=== PATIENT | male | born 1965 | race Caucasian/White ===

== ENCOUNTER 2020-04-14 10:00 | Outpatient (REF) | payer OTHER, SELFPAY ==
[2020-04-14 11:22] LABS: MANUAL DIFF FLAG NO
[2020-04-14 11:43] LABS: Basophils Absolute Auto 0.1 X10*3/uL (0.0-0.2); Basophils Percent Auto 0.7 % (0-2); Eosinophils Absolute Auto 0.1 X10*3/uL (0.0-0.4); Eosinophils Percent Auto 1.7 % (0-4); Hematocrit 45.5 % (42-52); Hemoglobin 15.3 g/dl (14.0-18.0); Imm Gran Abs Auto 0.03 X10*3/uL (0.00-0.03); Imm Gran Pct Auto 0.4 % (0.0-0.4); Lymphocytes Absolute Auto 2.3 X10*3/uL (1.2-4.9); Mean Corpuscular HGB Conc 33.6 g/dl (31.0-36.0); Mean Corpuscular Volume 89.2 fL (80-98); Mean Platelet Volume 9.7 fL (9.4-12.4); Monocytes Absolute Auto 0.8 X10*3/uL (0.1-1.2); Monocytes Percent Auto 10.5 % (2-11); Neutrophils Absolute Auto 4.2 X10*3/uL (2.0-8.3); Neutrophils Percent Auto 55.7 % (45-73); Platelet Count 345 X10*3/uL (160-400); Red Cell Distribution Width 12.3 % (11.0-16.0); White Blood Count 7.6 X10*3/uL (4.8-10.8)
[2020-04-14 12:14] LABS: Vitamin D 25-OH Total 34.7 ng/mL (>30)
[2020-04-14 12:15] LABS: Alanine Aminotransferase 115 U/L (0-40); Albumin Level 4.4 g/dL (3.5-5.0); Alkaline Phosphatase 71 U/L (39-117); Anion Gap 13 (12-20); Aspartate Amino Transferase 126 U/L (5-37); Bilirubin Total 0.7 mg/dL (0.0-1.0); Blood Urea Nitrogen 16 mg/dL (9-16); Calcium 8.8 mg/dL (8.4-10.2); Carbon Dioxide 28 mmol/L (22-29); Chloride 105 mmol/L (96-108); Cholesterol 208 mg/dL; Estimated Glomerular Filt Rate > 60; Glucose Fasting 104 mg/dL (60-99); HDL Cholesterol 74 mg/dL; LDL Cholesterol Calculated 120 mg/dl; Potassium 4.7 mmol/l (3.3-5.1); Sodium 141 mmol/L (135-145); Total Protein 6.6 g/dL (6.5-8.0); Triglycerides 70 mg/dL
[2020-04-14 12:32] LABS: Folate > 20.0 ng/mL (> or = 4.0); Vitamin B12 633 pg/mL (200-900)
== END 2020-04-14 10:01 | disposition home or self-care (01) ==
LOC: HO.HMGCLDS 10:00
PROVIDERS: PCP Internal Medicine; Visit Provider Internal Medicine
DX: E78.5 Hyperlipidemia, unspecified (principal); F32.9 Major depressive disorder, single episode, unspecified; R68.82 Decreased libido; Z00.01 Encounter for general adult medical examination with abnormal findings; R41.3 Other amnesia
CPT/HCPCS: 36415; 80053; 80061; 82306; 82607; 82746; 85025

== ENCOUNTER 2021-04-15 10:01 | Outpatient (REF) | payer OTHER, SELFPAY ==
[2021-04-15 11:58] LABS: Alanine Aminotransferase 30 U/L (0-40); Albumin Level 4.4 g/dL (3.5-5.0); Alkaline Phosphatase 71 U/L (39-117); Anion Gap 11 (12-20); Aspartate Amino Transferase 22 U/L (5-37); Bilirubin Total 1.3 mg/dL (0.0-1.0); Blood Urea Nitrogen 16 mg/dL (9-16); Calcium 8.9 mg/dL (8.4-10.2); Carbon Dioxide 27 mmol/L (22-29); Chloride 108 mmol/L (96-108); Cholesterol 194 mg/dL; Estimated Glomerular Filt Rate > 60; Glucose Fasting 76 mg/dL (60-99); HDL Cholesterol 66 mg/dL; LDL Cholesterol Calculated 119 mg/dl; Potassium 4.2 mmol/L (3.3-5.1); Sodium 142 mmol/L (135-145); Total Protein 6.5 g/dL (6.5-8.0); Triglycerides 45 mg/dL
[2021-04-15 12:10] LABS: PSA,Total (Free>4and<10) 4.31 ng/mL (0.00-4.00); Vitamin D 25-OH Total 32.7 ng/mL (>30)
[2021-04-16 11:22] LABS: Free Prostate Spec Ag 0.6 ng/mL; Percent Free Prostate Spec Ag 16 % (calc) (>25); Prostate Specific Ag Total 3.7 ng/mL (< OR = 4.0)
== END 2021-04-15 10:02 | disposition home or self-care (01) ==
LOC: HO.HMGCLDS 10:01
PROVIDERS: PCP Internal Medicine; Visit Provider Internal Medicine
DX: Z12.5 Encounter for screening for malignant neoplasm of prostate (principal); N40.0 Benign prostatic hyperplasia without lower urinary tract symptoms
CPT/HCPCS: 36415; 80053; 80061; 82306; 84153; 84154

== ENCOUNTER 2021-07-21 12:57 | Outpatient (REF) | payer OTHER, SELFPAY ==
[2021-07-21 14:39] LABS: Alanine Aminotransferase 21 U/L (0-40); Albumin Level 4.4 g/dL (3.5-5.0); Alkaline Phosphatase 75 U/L (39-117); Aspartate Amino Transferase 18 U/L (5-37); Bilirubin Direct 0.3 mg/dL (0.0-0.5); Total Protein 6.6 g/dL (6.5-8.0)
== END 2021-07-21 12:58 | disposition home or self-care (01) ==
LOC: HO.HMGCLDS 12:57
PROVIDERS: PCP Internal Medicine; Visit Provider Internal Medicine
DX: R17 Unspecified jaundice (principal)
CPT/HCPCS: 36415; 80076

== ENCOUNTER 2023-05-19 12:38 | Outpatient (AMB) | payer OTHER, SELFPAY ==
--- NOTE | 2023-05-19 13:13 | A.OFFPC_ITS ---
Vital Signs 05/19/23 13:14 Height 5 ft 11 in Weight 177 lb 8 oz BMI 24.8 BP 132/84 Blood Pressure Location Lt brachial Position Sitting Pulse 88 Pulse Source Pulse Oximeter Pulse Oximetry (%) 96 Oxygen Delivery Method Room Air Intake Visit Reasons: PE Intake Note: Pt is here for his Annual PE Allergies No Known Allergies Allergy (Unknown, Verified 05/19/23 13:43) Medication List - Last Reconciled 05/19/23 by Rocio Singh MD ascorbic acid (vitamin C) 1 g PO DAILY bupropion HCl 150 mg PO QAM milk thistle 150 mg PO DAILY multivitamin 1 tab PO DAILY omega 0-aph-xvr-fish oil 1,000 mg (120 mg-180 mg) (Fish Oil) 1 cap PO DAILY red yeast rice 600 mg PO DAILY sildenafil 100 mg PO DAILY PRN tadalafil (Cialis) 5 mg PO DAILY Tobacco use date assessed: 05/19/23 Dental Screening Dental Screen Date: 05/19/23 Did you have a dental visit in the last 12 months?: Yes Did you have a dental problem in the last 6 months where you did not have access to dental care?: No Was dental information given to patient?: Patient has dentist HPI PE HPI Details 57 year old male here today for his phys ical exam. He has history of prostate cancer status post radical prostatectomy, now with male erectile dysfunction, has stress incontinence, currently followed at [facility]. He has insomnia and depression currently stable on bupropion 150 mg taken once a day in a.m.. He is complaining today of pain in his left shoulder joint, with difficulty doing overhead move clancy with left hand due to pain. This has been present now for the last several months and has not improved with physical therapy or conservative measures. Patient requesting referral back to see [facility] He is up-to-date with screening colonoscopy done by Dr. Lin in 2015, due again in 2025. He has had COVID vaccinations in the past but does not want to get booster, has to get a flu shot today, up-to-date with his Tdap but has not yet had his shingles vaccination. 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 Sister No problems noted. Son No problems noted. Son No problems noted. Daughter No problems noted. Social History Housing: House Alcohol intake: former Patient Tobacco Use Status: Never used Tobacco e-Cigarette/Vaping Use: Never Used service: No Current occupational status: employed Cognitive needs: No Hearing needs: No Vision needs: Yes Questionnaire PHQ-9 Over the last 2 weeks, how often have you been bothered by any of the following problems? 1. Little interest or pleasure in doing things: several days 2. Feeling down, depressed, or hopeless: several days 3. Trouble falling or staying asleep, or sleeping too much: more than half the days 4. Feeling tired or having little energy: several days 5. Poor appetite or overeating: several days 6. Feeling bad about yourself - or that you are a failure or have let yourself or your family down: more than half the days 7. Trouble concentrating on things, such as reading the newspaper or watching television: several days 8. Moving or speaking so slowly that other people could have noticed. Or the opposite - being so fidgety or restless that you have been moving around a lot more than usual: several days 9. Thoughts that you would be better off or of hurting yourself in some way: not at all Total score: 10 Depression Screening Interpretation: Positive Depression Screening Follow-up: Existing condition and In treatment Depression Screening Done: Yes 47972 - PHQ-9 Billing: Yes Source: Developed by Drs. Major Gaspar, Velvet Clements, Man Belle and colleagues, with an educational juve from [employer]. Thrive Questionnaire Date Thrive assessed: 05/19/23 I am a: Patient What is your living situation today?: I have a steady place to live Within the past 12 months, did the food you bought not last and you didn't have the money to get more?: Never true Within the past 12 months, did you worry whether your food would run out before you got money to buy more?: Never true Do you have trouble paying for medicines?: No Do you have trouble getting transportation to medical appointments?: No Do you have trouble paying your heating and electricity bill?: No Do you have trouble taking care of your child, family member or friend?: No Do you have trouble with day-to-day activities such as bathing, preparing meals, shopping, managing finances, etc.?: No Are you currently unemployed and looking for a job?: No Are you interested in more education?: No AUDIT C Alcohol Use Questionnaire (AUDIT-C) 1. How often do you have a drink containing alcohol?: Never Total Score: 0 REGINA-7 AMB Questionnaire REGINA-7 Date REGINA - 7 assessed: 05/19/23 Feeling nervous, anxious, or on edge: 1 = Several days Not being able to stop or control worryin = Several days Worrying too much about different things: 1 = Several days Trouble relaxin = Several days Being so restless that it is hard to sit still: 0 = Not at all Becoming easily annoyed or irritable: 1 = Several days Feeling afraid as if something awful might happen: 0 = Not at all Total REGINA-7 score (0-4 normal; 5-9 mild; 10-14 moderate; 15-21 severe): 5 Source: Developed by Drs. Major Gaspar, Velvet Clements, Man Belle and colleagues, with an educational juve from [employer]. REGINA-7 Assessment Billing REGINA-7 Assessment Tool: REGINA-7 Assessment 03456 Review of Systems Const Denies headache(s), Denies malaise and Denies weakness Eyes Reports no additional complaints ENT Reports Normal hearing present, Denies dysphagia, Denies vertigo, Denies dizziness, Denies dry mouth, Denies otalgia, Denies headache(s), Denies hoarseness, Denies epistaxis, Denies nasal congestion, Denies odynophagia, Denies post nasal drip and Denies sore throat Card Denies chest pain, Denies chest pain with activity, Denies irregular heart rhythm, Denies lightheadedness, Denies palpitations and Denies dyspnea Resp Denies cough, Denies pain on inspiration and Denies dyspnea GI Denies abdominal pain, Denies melena, Denies hematochezia, Denies change in bowel habits, Denies dysphagia, Denies heartburn, Denies nausea and Denies odynophagia Denies hematuria, Denies dysuria, Reports nocturia, Denies penile discharge and Denies testicular mass Musc Reports as per HPI, Denies abnormal gait, Denies joint swelling, Reports limited range of motion (left shoulder), Denies muscle cramps and Denies muscle weakness Skin/Breast Denies new lesions and Denies rash Neuro Reports no additional complaints, Reports Normal hearing present, Denies abnormal gait, Denies vertigo, Denies dizziness, Denies headache(s), Denies lack of coordination, Denies focal weakness, Denies convulsions, Denies Sensory deficit (Neuro), Denies paresthesias and Denies weakness Psych Denies change in appetite and Denies difficulty concentrating Endo Denies cold intolerance, Denies polydipsia, Denies polyuria and Denies palpitations Ion/Lymph Denies easy bleeding and Denies easy bruising Aller/Immun Reports seasonal rhinorrhea Physical exam (Primary Care) Vital Signs: Last Vital Signs Pulse 88 05/19/23 13:14 BP 132/84 05/19/23 13:14 Pulse Ox 96 05/19/23 13:14 Oxygen Delivery Method Room Air 05/19/23 13:14 BMI result Body Mass Index 24.8 Tobacco/Smoking Status: Tobacco use Status Tobacco use date assessed 05/19/23 05/19/23 13:20 Patient Tobacco Use Status Never used Tobacco 05/19/23 13:20 e-Cigarette/Vaping Use Never Used 05/19/23 13:20 PHQ-9: PHQ-9 Score PHQ-9: Total score 10 05/19/23 14:11 Depression Screening Interpretation: Positive Depression Screening Follow-up: Existing condition and In treatment Thrive Assessment: Date of Thrive Assessment Date Thrive assessed 05/19/23 05/19/23 14:10 HENMT Head: Yes normal to inspection, Yes normocephalic and Yes atraumatic Ears: hearing grossly normal bilaterally and external ears normal General nose exam: Normal external nose present and No nasal discharge present Face and sinus: Yes face symmetric Mouth: moist mucous membranes Eyes Conjunctivae: conjunctivae normal Sclerae: sclerae normal Pupils: Equal, round and reactive pupils present EOM: EOMs intact bilaterally Neck Neck: Yes full ROM and Yes no lymphadenopathy Thyroid: Thyroid normal Resp Effort & Inspection: normal respiratory effort and able to speak in complete sentences Auscultation: clear to auscultation bilaterally Cardio Jugular venous distension: no JVD Rate: regular rate Rhythm: regular rhythm Heart sounds: S1 normal heart sound present and S2 normal heart sound present GI Inspection: Yes normal to inspection Palpation (GI): Soft to palpation Auscultation: normal bowel sounds General: Yes no CVA tenderness Back/Spine/Pelvis Back: no CVA tenderness and No back tenderness Skin General skin exam: no rashes or lesions noted Neuro Cranial nerves: Yes Equal, round and reactive pupils present and Yes Normal hearing present Cognition (Neuro): normal cognition Gait exam (Neuro): Normal gait present Motor exam (neuro): 5/5 motor strength present throughout Sensory Exam: No Sensory deficit (Neuro) Extrem Other: Positive tenderness on palpation over left AC joint, with decreased range of motion of left shoulder specially on abduction more than 90 degrees due to pain and stiffness. General: Yes no pedal edema and Yes normal gait Psych Appearance: grossly normal and well kempt Mental Status: mental status grossly normal Speech and movement: Normal speech and movement present Affect: normal affect Attitude: cooperative Thought process: Normal thought process present Office Procedures Flu Questionnaire Does the patient have a severe egg allergy?: No Does the patient have severe life threatening allergies?: No Does the patient have a fever or illness today?: No Has the patient ever had Guillain-Linden Syndrome?: No Has the patient ever had any past reaction to a flu shot?: No Immunizations flu vacc [id number] 6mos up(PF) 60 mcg(15 mcgx4)/0.5 mL IM syringe Performing Provider: Rocio Singh MD [facility] Administered by: Saadia Painting CMA on 05/19/23 14:12 Dose Route Admin Location Dispensed Lot Number Expiration Date [employer] Special[employer] 0.5 mL IM Left Deltoid 0.5 mL [id number] 12/10/23 01392-227-29 [employer] VIS Given Date VIS Provided VIS Publication Date 05/19/23 Single Vaccine 21 Eligibility Eligibility Date Funding Source Not [facility] Eligible 05/19/23 Private Assessment and Plan Assessment & Plan (1) Depression: Code(s): F32.9 - Major depressive disorder, single episode, unspecified Qualifiers: Active/Remission status: in partial remission Depression Type: major depressive disorder Major depression recurrence: recurrent Qualified Code(s): F33.41 - Major depressive disorder, recurrent, in partial remission Plan: Continued on bupropion SR (2) Annual visit for general adult medical examination with abnormal findings: Code(s): Z00.01 - Encounter for general adult medical examination with abnormal findings Plan: Will check appropriate labs. Recommended dental visit every 6 months and regular eye exams, at least every 2 years. Take adequate calcium in diet and vitamin-D 3 at 2000 IU per cap once a day, in addition to weight-bearing exercises to help maintain good muscle tone and weight control. Instructed to do testicular exam check for any mass. He is also followed at [facility]. Patient given his flu vaccine today, does not want to get COVID booster , advised to get his Shingrix vaccination for prevention of herpes zoster. He is due for another screening colonoscopy in 2025 (3) Chronic left shoulder pain: Code(s): M25.512 - Pain in left shoulder; G89.29 - Other chronic pain Plan: X-ray left shoulder joint ordered, has tried [id number] NSAIDs which afforded not much improvement. 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: Code(s): N52.02 - Corporo-venous occlusive erectile dysfunction Plan: Followed by [facility] Orders: Orders Lipid Panel 05/19/23 F32.9 - Major depressive disorder, single episode, unspecified, Z00.01 - Encounter for general adult medical examination with abnormal findings, Z13.220 - Encounter for screening for lipoid disorders Basic Metabolic Panel Fasting 05/19/23 F32.9 - Major depressive disorder, single episode, unspecified, Z00.01 - Encounter for general adult medical examination with abnormal findings, Z13.220 - Encounter for screening for lipoid disorders Vitamin D 25-OH Total 05/19/23 F32.9 - Major depressive disorder, single episode, unspecified, Z00.01 - Encounter for general adult medical examination with abnormal findings, Z13.220 - Encounter for screening for lipoid disorders Complete Blood Count Auto Diff 05/19/23 F32.9 - Major depressive disorder, single episode, unspecified, Z00.01 - Encounter for general adult medical examination with abnormal findings, Z13.220 - Encounter for screening for lipoid disorders Influenza [id number] Immunization 05/19/23 Z23 - Encounter for immunization Alanine Aminotransferase 05/19/23 F32.9 - Major depressive disorder, single episode, unspecified, Z00.01 - Encounter for general adult medical examination with abnormal findings, Z13.220 - Encounter for screening for lipoid disorders Aspartate Amino Transferase 05/19/23 F32.9 - Major depressive disorder, single episode, unspecified, Z00.01 - Encounter for general adult medical examination with abnormal findings, Z13.220 - Encounter for screening for lipoid disorders XR shoulder LT min 2V 05/19/23 G89.29 - Other chronic pain, M25.512 - Pain in left shoulder Referrals Orthopedics Referral G89.29 - Other chronic pain, M25.512 - Pain in left shoulder Medications: New bupropion HCl 150 mg PO QAM 90 tabs 3RF Coding Level of Care Code Est Pt Prev Care 40-64y(96611) Diagnoses Recurrent major depressive disorder, in partial remission F33.41 Active/Remission status: in partial remission Depression Type: major depressive disorder Major depression recurrence: recurrent Annual visit for general adult medical examination with abnormal findings Z00.01 Chronic left shoulder pain M25.512; G89.29 History of prostate cancer Z85.46 Male erectile dysfunction due to corporovenous occlusion N52.02 Additional Codes REGINA-7 Assessment Billing - REGINA-7 Assessment Tool: REGINA-7 Assessment [id number] ([id number])
[2023-05-19 13:14] VITALS: BP 132/84; PULSE 88; O2SAT 96; BMI 24.8
== END 2023-05-19 14:15 | disposition home or self-care (01) ==
PROVIDERS: PCP Internal Medicine; Visit Provider Internal Medicine
DX: Z23 Encounter for immunization (principal)
CPT/HCPCS: 90471; 90686; 96127; 99396

== ENCOUNTER 2023-06-02 08:52 | Outpatient (REF) | payer OTHER, SELFPAY ==
[2023-06-02 11:34] LABS: MANUAL DIFF FLAG NO
[2023-06-02 11:41] LABS: Basophils Absolute Auto 0.1 X10*3/uL (0.0-0.2); Basophils Percent Auto 0.9 % (0-2); Eosinophils Absolute Auto 0.2 X10*3/uL (0.0-0.4); Eosinophils Percent Auto 2.1 % (0-4); Hematocrit 43.4 % (42.0-52.0); Hemoglobin 15.1 g/dl (14.0-18.0); Imm Gran Abs Auto 0.02 X10*3/uL (0.00-0.03); Imm Gran Pct Auto 0.3 % (0.0-0.4); Lymphocytes Absolute Auto 2.2 X10*3/uL (1.2-4.9); Lymphocytes Percent Auto 31.9 % (20-40); Mean Corpuscular HGB Conc 34.8 g/dl (31.0-36.0); Mean Corpuscular Volume 86.3 fL (80.0-98.0); Mean Platelet Volume 9.7 fL (9.4-12.4); Monocytes Absolute Auto 0.6 X10*3/uL (0.1-1.2); Monocytes Percent Auto 8.9 % (2-11); Neutrophils Absolute Auto 3.9 x10*3/uL (2.0-8.3); Neutrophils Percent Auto 55.9 % (45-73); Platelet Count 327 X10*3/uL (160-400); Red Blood Count 5.03 X10*6/uL (4.60-5.80); Red Cell Distribution Width 12.3 % (11.0-16.0)
[2023-06-02 12:13] LABS: Alanine Aminotransferase 24 U/L (0-40); Anion Gap 11 (12-20); Aspartate Amino Transferase 21 U/L (5-37); Blood Urea Nitrogen 16 mg/dL (9-16); Calcium 9.2 mg/dL (8.4-10.2); Carbon Dioxide 25 mmol/L (22-29); Chloride 106 mmol/L (96-108); Cholesterol 198 mg/dL (<200); Estimated Glomerular Filt Rate > 60; Glucose Fasting 152 mg/dL (60-99); HDL Cholesterol 66 mg/dL (>40); LDL Cholesterol Calculated 121 mg/dL (<100); Potassium 3.9 mmol/L (3.3-5.1); Sodium 138 mmol/L (135-145); Triglycerides 57 mg/dL (<150)
[2023-06-02 12:19] LABS: Vitamin D 25-OH Total 66.3 ng/mL (>30)
== END 2023-06-02 08:53 | disposition home or self-care (01) ==
LOC: HO.WFDLDS 08:52
PROVIDERS: Visit Provider Internal Medicine
DX: Z00.01 Encounter for general adult medical examination with abnormal findings (principal); Z13.220 Encounter for screening for lipoid disorders; F32.9 Major depressive disorder, single episode, unspecified
CPT/HCPCS: 36415; 80048; 80061; 82306; 84450; 84460; 85025

== ENCOUNTER 2024-05-29 08:08 | Outpatient (REF) | payer OTHER, SELFPAY ==
[2024-05-29 13:25] LABS: MANUAL DIFF FLAG NO
[2024-05-29 13:37] LABS: Basophils Percent Auto 0.6 % (0-2); Eosinophils Absolute Auto 0.1 X10*3/uL (0.0-0.4); Eosinophils Percent Auto 0.9 % (0-4); Hematocrit 45.4 % (42.0-52.0); Hemoglobin 15.6 g/dl (14.0-18.0); Imm Gran Abs Auto 0.02 X10*3/uL (0.00-0.03); Imm Gran Pct Auto 0.3 % (0.0-0.4); Lymphocytes Absolute Auto 1.7 X10*3/uL (1.2-4.9); Mean Corpuscular HGB Conc 34.4 g/dl (31.0-36.0); Mean Corpuscular Hemoglobin 29.7 pg (27.0-33.0); Mean Corpuscular Volume 86.3 fL (80.0-98.0); Mean Platelet Volume 9.7 fL (9.4-12.4); Monocytes Absolute Auto 0.6 X10*3/uL (0.1-1.2); Monocytes Percent Auto 9.6 % (2-11); Neutrophils Percent Auto 62.6 % (45-73); Platelet Count 350 X10*3/uL (160-400); Red Blood Count 5.26 X10*6/uL (4.60-5.80); Red Cell Distribution Width 12.2 % (11.0-16.0); White Blood Count 6.4 X10*3/uL (4.8-10.8)
[2024-05-29 14:01] LABS: Alanine Aminotransferase 30 U/L (0-40); Anion Gap 8 (12-20); Aspartate Amino Transferase 27 U/L (5-37); Blood Urea Nitrogen 18 mg/dL (9-16); Calcium 8.6 mg/dL (8.4-10.2); Carbon Dioxide 26 mmol/L (22-29); Chloride 109 mmol/L (96-108); Cholesterol 199 mg/dL (<200); Estimated Glomerular Filt Rate > 60; Glucose Fasting 110 mg/dL (60-99); HDL Cholesterol 64 mg/dL (>40); LDL Cholesterol Calculated 127 mg/dL (<100); Sodium 139 mmol/L (135-145); Triglycerides 44 mg/dL (<150)
[2024-05-29 14:07] LABS: Vitamin D 25-OH Total 78.4 ng/mL (>30)
== END 2024-05-29 08:09 | disposition home or self-care (01) ==
LOC: HO.HMGCLDS 08:08
PROVIDERS: PCP Internal Medicine; Visit Provider Internal Medicine
DX: Z00.01 Encounter for general adult medical examination with abnormal findings (principal); Z23 Encounter for immunization; M75.102 Unspecified rotator cuff tear or rupture of left shoulder, not specified as traumatic; F33.41 Major depressive disorder, recurrent, in partial remission; M47.816 Spondylosis without myelopathy or radiculopathy, lumbar region; G89.29 Other chronic pain; M25.512 Pain in left shoulder; R73.9 Hyperglycemia, unspecified; E66.9 Obesity, unspecified; F41.9 Anxiety disorder, unspecified; M54.9 Dorsalgia, unspecified; G47.9 Sleep disorder, unspecified; H26.9 Unspecified cataract; Z71.89 Other specified counseling; Z85.46 Personal history of malignant neoplasm of prostate
CPT/HCPCS: 36415; 80048; 80061; 82306; 83036; 84450; 84460; 85025; 90471; 90656; 96127

== ENCOUNTER 2024-05-29 08:08 | Outpatient (AMB) | payer OTHER, SELFPAY ==
[2024-05-29 08:31] VITALS: BP 116/84; PULSE 75; O2SAT 97; BMI 25.4
--- NOTE | 2024-05-29 08:31 | A.OFFPC_ITS ---
Vital Signs 05/29/24 08:31 Height 5 ft 11 in Weight 182 lb BMI 25.4 BP 116/84 Blood Pressure Location Lt brachial Position Sitting Pulse 75 Pulse Source Pulse Oximeter Pulse Oximetry (%) 97 Oxygen Delivery Method Room Air Intake Visit Reasons: Annual PE Intake Note: Pt is here today for his PE: Last colonoscopy 11/03/15 Allergies No Known Allergies Allergy (Unknown, Verified 05/29/24 08:53) Medication List - Last Reconciled 05/29/24 by Rocio Singh MD ascorbic acid (vitamin C) 1 g PO DAILY bupropion HCl XL 150 mg PO QAM milk thistle 150 mg PO DAILY multivitamin 1 tab PO DAILY omega 5-mjw-ifu-fish oil 1,000 (120-180) mg (Fish Oil) 1 cap PO DAILY red yeast rice 600 mg PO DAILY sildenafil 100 mg PO DAILY PRN tadalafil (Cialis) 5 mg PO DAILY Tobacco use date assessed: 05/29/24 Dental Screening Dental Screen Date: 05/29/24 Did you have a dental visit in the last 12 months?: Yes Did you have a dental problem in the last 6 months where you did not have access to dental care?: Yes Was dental information given to patient?: Patient has dentist HPI Annual PE HPI Details - The patient is a 58-year-old male pres enting for a physical examination and health maintenance. - Hyperglycemia: Blood sugar was noted t o be elevated during the last lab tests performed in May. Patient has concerns about the timing of blood work in relation to the visit consultations. - Obesity: Patient reports a weight gain of 10 pounds over the last month and a half, noting a sedentary lifestyle during evenings despite being busy during the day. - Anxiety: Currently managed with medica tion, but patient is unsure of its efficacy. - Chronic back pain: Persistent daily pa in described as mechanical and arthritic in nature. Has had multiple surgeries in the past, including a plate insertion in the SI joint. Utilizes NSAIDs and has previously used lidocaine patches with some relief. - Sleep disturbance: Reports issues with insomnia and sleep maintenance. The patient is considering a trial of Ambien. - Cataracts: Diagnosis of cataracts, rep orted as affecting both eyes. - Precancerous skin lesion: Recent biops y revealed a potentially precancerous lesion, with ongoing dermatological surveillance. - Rotator cuff tear: History of rotator cuff injury with ongoing pain and sleep disturbance. Previous physical therapy provided some relief, and patient is seeking a second opinion. [facility] Medical History (Updated 06/03/24 @ 01:45 by Rocio Singh MD) Rotator cuff tear, left Male erectile dysfunction due to corporovenous occlusion History of prostate cancer Chronic left shoulder pain Prostate cancer History of alcoholism Insomnia Loss of libido Sacroiliitis Benign prostatic hyperplasia Degenerative joint disease (DJD) of lumbar spine Depression Surgical History H/O radical prostatectomy Fusion of joint History of foot surgery Bilateral cataracts History of lumbar fusion Family History Father Cancer of prostate Mother Stroke Mental health disorder Maternal Grandmother Stroke Paternal Grandfather Cancer of prostate Sister No problems noted. Sister No problems noted. Son No problems noted. Son No problems noted. Daughter No problems noted. Social History Housing: House Alcohol intake: former Patient Tobacco Use Status: Never used Tobacco e-Cigarette/Vaping Use: Never Used service: No Current occupational status: employed Cognitive needs: No Hearing needs: No Vision needs: Yes Questionnaire PHQ-9 Over the last 2 weeks, how often have you been bothered by any of the following problems? 1. Little interest or pleasure in doing things: several days 2. Feeling down, depressed, or hopeless: several days 3. Trouble falling or staying asleep, or sleeping too much: several days 4. Feeling tired or having little energy: several days 5. Poor appetite or overeating: several days 6. Feeling bad about yourself - or that you are a failure or have let yourself or your family down: several days 7. Trouble concentrating on things, such as reading the newspaper or watching television: several days 8. Moving or speaking so slowly that other people could have noticed. Or the opposite - being so fidgety or restless that you have been moving around a lot more than usual: not at all 9. Thoughts that you would be better off or of hurting yourself in some way: not at all Total score: 7 Depression Screening Interpretation: Positive Depression Screening Follow-up: Existing condition, In treatment and Community Mental Health Worker F/U Depression Screening Done: Yes 54788 - PHQ-9 Billing: Yes Source: Developed by Drs. Major Gaspar, Man Wills and colleagues, with an educational juve from [employer]. Thrive Questionnaire Date Thrive assessed: 05/29/24 I am a: Patient What is your living situation today?: I have a steady place to live Within the past 12 months, did the food you bought not last and you didn't have the money to get more?: Never true Within the past 12 months, did you worry whether your food would run out before you got money to buy more?: Never true Do you have trouble paying for medicines?: No Do you have trouble getting transportation to medical appointments?: No Do you have trouble paying your heating and electricity bill?: No Do you have trouble taking care of your child, family member or friend?: No Do you have trouble with day-to-day activities such as bathing, preparing meals, shopping, managing finances, etc.?: No Are you currently unemployed and looking for a job?: No Are you interested in more education?: Yes Please select the resources that you would like help with: None Currently or been in a relationship where the following occur: No concerns reported THRIVE Score: 0 AUDIT C Alcohol Use Questionnaire (AUDIT-C) 1. How often do you have a drink containing alcohol?: Never Total Score: 0 REGINA-7 AMB Questionnaire REGINA-7 Date REGINA - 7 assessed: 05/29/24 Feeling nervous, anxious, or on edge: 1 = Several days Not being able to stop or control worryin = Several days Worrying too much about different things: 1 = Several days Trouble relaxin = Several days Being so restless that it is hard to sit still: 1 = Several days Becoming easily annoyed or irritable: 1 = Several days Feeling afraid as if something awful might happen: 0 = Not at all Total REGINA-7 score (0-4 normal; 5-9 mild; 10-14 moderate; 15-21 severe): 6 Source: Developed by Drs. Major Gaspar, Man Wills and colleagues, with an educational juve from [employer]. REGINA-7 Assessment Billing REGINA-7 Assessment Tool: REGINA-7 Assessment 18754 Review of Systems Const Denies headache(s), Denies malaise and Denies weakness Eyes Reports no additional complaints ENT Reports Normal hearing present, Denies dysphagia, Denies dizziness, Denies dry mouth, Denies headache(s), Denies epistaxis and Denies nasal congestion Card Denies chest pain, Denies chest pain with activity, Denies irregular heart rhythm, Denies lightheadedness, Denies palpitations and Denies dyspnea Resp Denies cough, Denies pain on inspiration and Denies dyspnea GI Denies abdominal pain, Denies melena, Denies hematochezia, Denies change in bowel habits, Denies dysphagia, Denies heartburn and Denies nausea Denies hematuria, Denies dysuria, Reports nocturia, Denies penile discharge and Denies testicular mass Musc Reports as per HPI, Denies abnormal gait, Denies joint swelling, Reports limited range of motion (left shoulder), Denies muscle cramps and Denies muscle weakness Skin/Breast Denies new lesions and Denies rash Neuro Reports no additional complaints, Reports Normal hearing present, Denies abnormal gait, Denies dizziness, Denies headache(s), Denies lack of coordination, Denies focal weakness, Denies convulsions, Denies Sensory deficit (Neuro), Denies paresthesias and Denies weakness Psych Reports as per HPI Endo Denies cold intolerance, Denies polydipsia, Denies polyuria and Denies palpitations Ion/Lymph Denies easy bleeding and Denies easy bruising Aller/Immun Reports seasonal rhinorrhea Physical exam (Primary Care) Vital Signs: Last Vital Signs Pulse 75 05/29/24 08:31 BP 116/84 05/29/24 08:31 Pulse Ox 97 05/29/24 08:31 Oxygen Delivery Method Room Air 05/29/24 08:31 BMI result Body Mass Index 25.4 Tobacco/Smoking Status: Tobacco use Status Tobacco use date assessed 05/29/24 05/29/24 08:35 Patient Tobacco Use Status Never used Tobacco 05/29/24 08:35 e-Cigarette/Vaping Use Never Used 05/29/24 08:35 PHQ-9: PHQ-9 Score PHQ-9: Total score 7 05/29/24 09:25 Depression Screening Interpretation: Positive Depression Screening Follow-up: Existing condition, In treatment and Community Mental Health Worker F/U Thrive Assessment: Date of Thrive Assessment Date Thrive assessed 05/29/24 05/29/24 08:35 Currently or been in a relationship where the following occur: No concerns reported [facility] Head: Yes normocephalic Ears: hearing grossly normal bilaterally and external ears normal General nose exam: Normal external nose present and No nasal discharge present Face and sinus: Yes face symmetric Mouth: moist mucous membranes Eyes Conjunctivae: conjunctivae normal Sclerae: sclerae normal Pupils: Equal, round and reactive pupils present EOM: EOMs intact bilaterally Neck Neck: Yes full ROM and Yes no lymphadenopathy Thyroid: Thyroid normal Resp Effort & Inspection: normal respiratory effort and able to speak in complete sentences Auscultation: clear to auscultation bilaterally Cardio Jugular venous distension: no JVD Rate: regular rate Rhythm: regular rhythm Heart sounds: S1 normal heart sound present and S2 normal heart sound present GI Inspection: Yes normal to inspection Palpation (GI): Soft to palpation Auscultation: normal bowel sounds General: Yes no CVA tenderness Back/Spine/Pelvis Back: no CVA tenderness and No back tenderness Skin General skin exam: no rashes or lesions noted Neuro Cranial nerves: Yes Equal, round and reactive pupils present and Yes Normal hearing present Cognition (Neuro): normal cognition Gait exam (Neuro): Normal gait present Motor exam (neuro): 5/5 motor strength present throughout Sensory Exam: No Sensory deficit (Neuro) Extrem Other: Positive tenderness on palpation over left AC joint, with decreased range of motion of left shoulder specially on abduction more than 90 degrees due to pain and stiffness. General: Yes no pedal edema and Yes normal gait Psych Appearance: grossly normal and well kempt Mental Status: mental status grossly normal Speech and movement: Normal speech and movement present Affect: normal affect Attitude: cooperative Thought process: Normal thought process present Office Procedures Flu Questionnaire Does the patient have a severe egg allergy?: No Does the patient have severe life threatening allergies?: No Does the patient have a fever or illness today?: No Has the patient ever had Guillain-[place]il[place] Syndrome?: No Has the patient ever had any past reaction to a flu shot?: No Results AMB Hemoglobin A1c AMB Hemoglobin A1c 5.2 % Last Edit by Taylor Nix CMA on 05/29/24 09:18 Immunizations Fluarix Triv [id number] (PF) 45 mcg (15 mcg x 3)/0.5 mL IM syringe Performing Provider: Rocio Singh MD Performing Location: [facility] Administered by: Taylor Nix CMA on 05/29/24 09:15 Dose Route Admin Location Dispensed Lot Number Expiration Date NDC Isotope Technologist 0.5 mL IM Left Deltoid 0.5 mL [id number] 12/09/24 [id number] [employer] VIS Given Date VIS Provided VIS Publication Date 05/29/24 Single Vaccine 21 Eligibility Eligibility Date Funding Source Not [facility] Eligible 05/29/24 Private Results Reviewed Results Reviewed: Laboratory Last Values Hgb A1c (Clinic) 5.2 % (4.0-6.0) 05/29/24 09:14 Coding Level of Care Code Est Pt Prev Care 40-64y(80824) Diagnoses Annual visit for general adult medical examination with abnormal findings Z00.01 Tear of left rotator cuff, unspecified tear extent, unspecified whether traumatic M75.102 Rotator cuff tear extent: unspecified tear extent Rotator cuff tear trauma status: unspecified whether traumatic Recurrent major depressive disorder, in partial remission F33.41 Active/Remission status: in partial remission Depression Type: major depressive disorder Major depression recurrence: recurrent Degenerative joint disease (DJD) of lumbar spine M47.816 Chronic left shoulder pain M25.512; G89.29 Encounter for counseling regarding advance directives Z71.89 Additional Codes PHQ-9 - 73957 - PHQ-9 Billing: Yes ([id number]) REGINA-7 Assessment Billing - REGINA-7 Assessment Tool: REGINA-7 Assessment 64592 ([id number]) Assessment & Plan Assessment & Plan (1) Annual visit for general adult medical examination with abnormal findings: Code(s): Z00.01 - Encounter for general adult medical examination with abnormal findings (2) Rotator cuff tear, left: Code(s): M75.102 - Unspecified rotator cuff tear or rupture of left shoulder, not specified as traumatic Category: Medical Qualifiers: Rotator cuff tear extent: unspecified tear extent Rotator cuff tear trauma status: unspecified whether traumatic Qualified Code(s): M75.102 - Unspecified rotator cuff tear or rupture of left shoulder, not specified as traumatic (3) Depression: Code(s): F32.9 - Major depressive disorder, single episode, unspecified Category: Medical Qualifiers: Active/Remission status: in partial remission Depression Type: major depressive disorder Major depression recurrence: recurrent Qualified Code(s): F33.41 - Major depressive disorder, recurrent, in partial remission (4) Degenerative joint disease (DJD) of lumbar spine: Code(s): M47.816 - Spondylosis without myelopathy or radiculopathy, lumbar region Category: Medical (5) Chronic left shoulder pain: Code(s): M25.512 - Pain in left shoulder; G89.29 - Other chronic pain Category: Medical (6) Encounter for counseling regarding advance directives: Code(s): Z71.89 - Other specified counseling Plan: Initiated the conversation about Advanced Directives. Advanced Directives help patients prepare for current and future decisions about their medical treatment and place of care. Discussed with patient that it is a process where a patients current condition and prognosis are reviewed, their wishes for information regarding their illness are elicited, and likely medical dilemmas are presented and options discussed. Healthcare proxy form completed The form can be amended as needed, reviewed yearly and make changes as needed Plan Repeat Hb A1c test results showed normal results - Continue weight management strategies and consider dietary counseling. - Referral for a second opinion on the rotator cuff tear at [facility]. - Consider resumption of lidocaine patches for chronic back pain. - Assess sleep disturbance with a trial of Ambien. - Continue current mental health medication and follow-up with psychiatrist - Dermatologic follow-up for monitoring and potential treatment of precancerous lesions. - Consideration of future vaccination for shingles and tetanus. - fasting labs ordered today Patient was informed and verbally consented to the use of an ambient scribe for clinic note documentation during this visit. Orders: Orders AMB Hemoglobin A1c 05/29/24 Z13.9 - Encounter for screening, unspecified Influenza [id number] Immunization 05/29/24 Z23 - Encounter for immunization Aspartate Amino Transferase 05/29/24 F33.41 - Major depressive disorder, recu rrent, in partial remission, G89.29 - Other chronic pain, M25.512 - Pain in left shoulder, M47.816 - Spondylosis without myelopathy or radiculopathy, lumbar region, M75.102 - Unspecified rotator cuff tear or rupture of left shoulder, not specified as traumatic, Z00.01 - Encounter for general adult medical examination with abnormal findings, Z71.89 - Other specified counseling, Z85.46 - Personal history of malignant neoplasm of prostate Lipid Panel 05/29/24 F33.41 - Major depressive disorder, recurrent, in partial remission, G89.29 - Other chronic pain, M25.512 - Pain in left shoulder, M47.816 - Spondylosis without myelopathy or radiculopathy, lumbar region, M75.102 - Unspecified rotator cuff tear or rupture of left shoulder, not specified as traumatic, Z00.01 - Encounter for general adult medical examination with abnormal findings, Z71.89 - Other specified counseling, Z85.46 - Personal history of malignant neoplasm of prostate Complete Blood Count Auto Diff 05/29/24 F33.41 - Major depressive disorder, recurrent, in partial remission, G89.29 - Other chronic pain, M25.512 - Pain in left shoulder, M47.816 - Spondylosis without myelopathy or radiculopathy, lumbar region, M75.102 - Unspecified rotator cuff tear or rupture of left shoulder, not specified as traumatic, Z00.01 - Encounter for general adult medical examination with abnormal findings, Z71.89 - Other specified counseling, Z85.46 - Personal history of malignant neoplasm of prostate Basic Metabolic Panel Fasting 05/29/24 F33.41 - Major depressive disorder, recurrent, in partial remission, G89.29 - Other chronic pain, M25.512 - Pain in left shoulder, M47.816 - Spondylosis without myelopathy or radiculopathy, lumbar region, M75.102 - Unspecified rotator cuff tear or rupture of left shoulder, not specified as traumatic, Z00.01 - Encounter for general adult medical examination with abnormal findings, Z71.89 - Other specified counseling, Z85.46 - Personal history of malignant neoplasm of prostate Alanine Aminotransferase 05/29/24 F33.41 - Major depressive disorder, recurrent, in partial remission, G89.29 - Other chronic pain, M25.512 - Pain in left shoulder, M47.816 - Spondylosis without myelopathy or radiculopathy, lumbar region, M75.102 - Unspecified rotator cuff tear or rupture of left shoulder, not specified as traumatic, Z00.01 - Encounter for general adult medical examination with abnormal findings, Z71.89 - Other specified counseling, Z85.46 - Personal history of malignant neoplasm of prostate Vitamin D 25-OH Total 05/29/24 F33.41 - Major depressive disorder, recurrent, in partial remission, G89.29 - Other chronic pain, M25.512 - Pain in left shoulder, M47.816 - Spondylosis without myelopathy or radiculopathy, lumbar region, M75.102 - Unspecified rotator cuff tear or rupture of left shoulder, not specified as traumatic, Z00.01 - Encounter for general adult medical examination with abnormal findings, Z71.89 - Other specified counseling, Z85.46 - Personal history of malignant neoplasm of prostate Referrals Orthopedics Referral M75.102 - Unspecified rotator cuff tear or rupture of left shoulder, not specified as traumatic
== END 2024-05-29 09:30 | disposition home or self-care (01) ==
PROVIDERS: PCP Internal Medicine; Visit Provider Internal Medicine
DX: Z13.9 Encounter for screening, unspecified (principal); Z23 Encounter for immunization

== ENCOUNTER 2024-11-11 10:37 | Outpatient (AMB) | payer OTHER, SELFPAY ==
--- NOTE | 2024-11-11 12:34 | AM.OFFWIN_ITS ---
Intake Vital Signs 11/11/24 12:38 Weight 175 lb BP 122/80 Blood Pressure Location Rt brachial Position Sitting Pulse 74 Pulse Source Pulse Oximeter Temp 98.2 F Temp Source Oral Pulse Oximetry (%) 98 Oxygen Delivery Method Room Air Intake Visit Reasons: EP Ear infection? Intake Note: Patient here for right ear infection, was put on abx on 10/28. Patient Tobacco Use Status: Never used Tobacco Allergies No Known Allergies Allergy (Unknown, Verified 11/11/24 12:41) Do you need a note to return to daycare/school/sports/work: No HPI HPI Comments History of Present Illness Details History of Present Illness The patient is a 59-year-old male presenting with earache and auditory fullness. He references the onset of symptoms after scuba diving in [place] around October 18 or . Failure to properly administer alcohol to his ears while abroad resulted in discomfort and pain. Despite seeking care at the Urgent Care and receiving ear drops on October 28 in [place], improvement has not been noted. The patient also reports dizziness and headaches but does not experience hearing loss or otorrhea. After consulting with Dr. Gar, he mentioned symptoms consistent with an inner ear infection. The episode has persisted, causing concern and prompting further evaluation. He has no fever or chills. He denies CP, SOB, abd pain, n/v/d, sore throat, or cough. Physical Exam General: Cooperative, healthy appearing, comfortable, no acute distress and well developed Orientation: Patient oriented x3 Head: Normal to inspection. No sinus tenderness noted. Ears: Left ear with erythema in the canal and the TM is red and slightly bulging. Right canal has slight erythema in the canal. Both are dry with no discharge noted. No tragus or mastoid tenderness noted. Nose: Normal external nose present Neck: Normal visual inspection and Yes full ROM Respiratory: Normal respiratory effort and able to speak in complete sentences. Clear to auscultation bilaterally Cardiovascular: Regular rate and rhythm. Normal S1 and S2 Skin: No rashes or lesions noted Patient was informed and verbally consented to the use of an ambient scribe for clinic note documentation during this visit. [facility] Medical History (Updated 06/03/24 @ 01:45 by Rocio Singh MD) Rotator cuff tear, left Male erectile dysfunction due to corporovenous occlusion History of prostate cancer Chronic left shoulder pain Prostate cancer History of alcoholism Insomnia Loss of libido Sacroiliitis Benign prostatic hyperplasia Degenerative joint disease (DJD) of lumbar spine Depression Surgical History H/O radical prostatectomy Fusion of joint History of foot surgery Bilateral cataracts History of lumbar fusion Family History Father Cancer of prostate Mother Stroke Mental health disorder Maternal Grandmother Stroke Paternal Grandfather Cancer of prostate Sister No problems noted. Sister No problems noted. Son No problems noted. Son No problems noted. Daughter No problems noted. Social History Housing: House Alcohol intake: former Patient Tobacco Use Status: Never used Tobacco e-Cigarette/Vaping Use: Never Used service: No Current occupational status: employed Cognitive needs: No Hearing needs: No Vision needs: Yes Review of Systems Const All systems reviewed & are unremarkable except as noted in HPI and below Physical Exam Vital Signs: Last Vital Signs Temp 98.2 F 11/11/24 12:38 Pulse 74 11/11/24 12:38 BP 122/80 11/11/24 12:38 Pulse Ox 98 11/11/24 12:38 Oxygen Delivery Method Room Air 11/11/24 12:38 Assessment & Plan Assessment & Plan (1) Otitis media: Code(s): H66.90 - Otitis media, unspecified, unspecified ear Plan Most likely OM vs OE vs ET dysfunction vs TM perforation Plan The plan involves initiating oral antibiotic therapy for suspected Acute Otitis Media, as topical ear drops have been ineffective. This approach addresses suspected inner ear infection components and aims for symptom resolution. A 10- day course of oral antibiotics, Augmentin, will be prescribed, with directions provided for proper adherence. Prescription fulfillment is arranged at a [facility] pharmacy, prioritizing accessibility. Current treatment focuses on effectively resolving the infection, and no additional diagnostic or procedural intervention is discussed. The objective is symptomatic relief and restored auditory health within the treatment timeframe. Medications: New amoxicillin-pot clavulanate 875-125 mg 1 tab PO Q12H 10 days 20 tabs 0RF Coding Level of Care Code Est Pt Level 3 (23271) Diagnoses Otitis media H66.90
[2024-11-11 12:38] VITALS: BP 122/80; PULSE 74; TEMP 36.8; O2SAT 98
== END 2024-11-11 13:04 | disposition home or self-care (01) ==
PROVIDERS: PCP Internal Medicine; Visit Provider Physician Assistant Medical
DX: H66.93 Otitis media, unspecified, bilateral (principal)

== ENCOUNTER → 2024-11-11 10:37 | Outpatient (BNVA) | payer OTHER, SELFPAY | PROVIDERS: PCP Internal Medicine; Visit Provider Physician Assistant Medical | DX: Z13.89 Encounter for screening for other disorder (principal) ==

== ENCOUNTER 2024-12-10 07:46 | Outpatient (AMB) | payer OTHER, SELFPAY ==
--- NOTE | 2024-12-10 07:51 | A.OFFPC_ITS ---
Vital Signs 12/10/24 08:07 Height 5 ft 11 in Weight 183 lb BMI 25.5 BP 112/68 Blood Pressure Location Rt brachial Position Sitting Respiration 16 Pulse 79 Pulse Source Pulse Oximeter Temp 98.2 F Temp Source Oral Pulse Oximetry (%) 96 Oxygen Delivery Method Room Air Intake Visit Reasons: otitis media f/u from walkin Intake Note: Pt is here today f/u from walkin for otitis media Allergies No Known Allergies Allergy (Unknown, Verified 12/10/24 08:27) Medication List - Last Reconciled 12/10/24 by Rocio Singh MD ascorbic acid (vitamin C) 1 g PO DAILY bupropion HCl XL 300 mg PO QAM milk thistle 150 mg PO DAILY multivitamin 1 tab PO DAILY omega 5-gxi-gec-fish oil 1,000 (120-180) mg (Fish Oil) 1 cap PO DAILY red yeast rice 600 mg PO DAILY tadalafil (Cialis) 5 mg PO DAILY Tobacco use date assessed: 12/10/24 Dental Screening Dental Screen Date: 12/10/24 Did you have a dental visit in the last 12 months?: Yes Did you have a dental problem in the last 6 months where you did not have access to dental care?: No Was dental information given to patient?: Patient has dentist HPI otitis media f/u from walkin HPI Details 59-year-old male here today still compla ining of pain and popping sensation in his left ear. He went scuba diving couple of weeks ago and that was when symptoms started. He was seen at the walk-in clinic at [facility] and was prescribed an antibiotic ear drop name of which she can not recall which she states did absolutely nothing. He was then seen at the walk-in clinic at [facility] [place] and was prescribed Augmentin which afforded only slight improvement of the pain. No accompanying discharge, no hearing loss noted. Also has pain and stiffness in the medial aspect of his left elbow which has been present now for the last several days. No history of trauma. He has been applying diclofenac gel 1% once a day which only affords slight improvement of the pain. [facility] Medical History Rotator cuff tear, left Male erectile dysfunction due to corporovenous occlusion History of prostate cancer Chronic left shoulder pain Prostate cancer History of alcoholism Insomnia Loss of libido Sacroiliitis Benign prostatic hyperplasia Degenerative joint disease (DJD) of lumbar spine Depression Surgical History H/O radical prostatectomy Fusion of joint History of foot surgery Bilateral cataracts History of lumbar fusion Family History Father Cancer of prostate Mother Stroke Mental health disorder Maternal Grandmother Stroke Paternal Grandfather Cancer of prostate Sister No problems noted. Sister No problems noted. Son No problems noted. Son No problems noted. Daughter No problems noted. Social History Housing: House Alcohol intake: former Patient Tobacco Use Status: Never used Tobacco e-Cigarette/Vaping Use: Never Used service: No Current occupational status: employed Cognitive needs: No Hearing needs: No Vision needs: Yes Questionnaire Thrive Questionnaire Date Thrive assessed: 12/08/24 I am a: Patient What is your living situation today?: I have a steady place to live Within the past 12 months, did the food you bought not last and you didn't have the money to get more?: Never true Within the past 12 months, did you worry whether your food would run out before you got money to buy more?: Never true Do you have trouble paying for medicines?: No Do you have trouble getting transportation to medical appointments?: No Do you have trouble paying your heating and electricity bill?: No Do you have trouble taking care of your child, family member or friend?: No Do you have trouble with day-to-day activities such as bathing, preparing meals, shopping, managing finances, etc.?: No Are you currently unemployed and looking for a job?: No Are you interested in more education?: Yes Please select the resources that you would like help with: None Currently or been in a relationship where the following occur: No concerns reported THRIVE Score: 0 AUDIT C Alcohol Use Questionnaire (AUDIT-C) 1. How often do you have a drink containing alcohol?: Never Total Score: 0 REGINA-7 AMB Questionnaire REGINA-7 Date REGINA - 7 assessed: 05/29/24 Feeling nervous, anxious, or on edge: 1 = Several days Not being able to stop or control worryin = Several days Worrying too much about different things: 1 = Several days Trouble relaxin = More than half the days Being so restless that it is hard to sit still: 1 = Several days Becoming easily annoyed or irritable: 2 = More than half the days Feeling afraid as if something awful might happen: 1 = Several days Total REGINA-7 score (0-4 normal; 5-9 mild; 10-14 moderate; 15-21 severe): 9 Source: Developed by Drs. Major Gaspar, Velvet Clements, Man Belle and colleagues, with an educational juve from [employer]. Review of Systems Const All systems reviewed & are unremarkable except as noted in HPI and below ENT Denies nasal discharge, Denies disequilibrium, Denies tinnitus, Denies sinus pain, Denies sinus pressure and Denies sore throat Card Reports no additional complaints Resp Reports no additional complaints Musc Reports as per HPI, Denies muscle weakness, Denies numbness and Denies stiffness Skin/Breast Denies lesions, Denies rash and Denies wounds Neuro Denies numbness and Denies disequilibrium Physical exam (Primary Care) Vital Signs: Last Vital Signs Temp 98.2 F 12/10/24 08:07 Pulse 79 12/10/24 08:07 Resp 16 12/10/24 08:07 BP 112/68 12/10/24 08:07 Pulse Ox 96 12/10/24 08:07 Oxygen Delivery Method Room Air 12/10/24 08:07 BMI result Body Mass Index 25.5 Tobacco/Smoking Status: Tobacco use Status Tobacco use date assessed 12/10/24 12/10/24 07:52 Patient Tobacco Use Status Never used Tobacco 12/10/24 07:52 e-Cigarette/Vaping Use Never Used 12/10/24 07:52 Thrive Assessment: Date of Thrive Assessment Date Thrive assessed 12/08/24 12/10/24 07:52 Currently or been in a relationship where the following occur: No concerns reported Const General: no acute distress and alert HENMT Ears: hearing grossly normal bilaterally, external ears normal, TM's normal bilaterally, no periauricular adenopathy and other (Slight erythema lower aspect of external auditory canal and TM edge) Neck Neck: Yes full ROM and Yes no lymphadenopathy Skin Lesions: no lesions Rashes: no rashes Extrem Other: Slight fullness and tenderness over left medial epicondylar area, slight pain elicited on pronation supination of left forearm Coding Level of Care Code Est Pt Level 4 (95429) Diagnoses Otalgia of left ear H92.02 Medial epicondylitis of left elbow M77.02 Assessment & Plan Assessment & Plan (1) Otalgia of left ear: Code(s): H92.02 - Otalgia, left ear Category: Medical Plan: Prescription sent for ciprofloxacin-dexamethasone, instill 4 drops in left ear canal twice a day for no more than 7 days. Call if no improvement after treatment finish (2) Medial epicondylitis of left elbow: Code(s): M77.02 - Medial epicondylitis, left elbow Category: Medical Plan: Prescription sent for diclofenac gel 3%, apply to affected area twice a day. If no improvement after a week, to call and let me know Medications: New diclofenac sodium 3% (Solaraze) 1 appl topical BID PRN 100 grams 0RF pain (scale score 1-3) ciprofloxacin-dexamethasone 0.3-0.1 % 4 drps otic (ears) BID 7.5 mL 0RF 7 days Changed From bupropion HCl XL 150 mg PO QAM 90 tabs 3RF To bupropion HCl XL 300 mg PO QAM
[2024-12-10 08:07] VITALS: BP 112/68; PULSE 79; RESP 16; TEMP 36.8; O2SAT 96; BMI 25.5
== END 2024-12-10 08:53 | disposition home or self-care (01) ==
LOC: HO.HMCC 07:47
PROVIDERS: PCP Internal Medicine; Visit Provider Internal Medicine
DX: H92.02 Otalgia, left ear (principal); M77.02 Medial epicondylitis, left elbow

== ENCOUNTER 2025-06-03 09:27 | Outpatient (AMB) | payer OTHER, SELFPAY ==
[2025-06-03 09:46] VITALS: BP 112/70; PULSE 73; RESP 16; TEMP 36.7; O2SAT 97; BMI 25.2
--- NOTE | 2025-06-03 09:46 | MHC.PC.OV ---
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: No Allergies No Known Allergies Allergy (Unknown, Verified 06/03/25 10:05) Medication List - Last Reconciled 06/03/25 by Rocio Singh MD ascorbic acid (vitamin C) 1 g PO DAILY bupropion HCl XL 450 mg PO QAM milk thistle 150 mg PO DAILY multivitamin 1 tab PO DAILY omega 3-vhk-kvj-fish oil 1,000 (120-180) mg (Fish Oil) 1 cap PO DAILY red yeast rice 600 mg PO DAILY tadalafil (Cialis) 5 mg PO DAILY Tobacco use date assessed: 06/03/25 Dental Screening Dental Screen Date: 06/03/25 Did you have a dental visit in the last 12 months?: Yes Did you have a dental problem in the last 6 months where you did not have access to dental care?: No Was dental information given to patient?: Patient has dentist HPI Annual PE HPI Details 59 year old male with a history of prostate cancer, degenerative joint disease of lumbar spine, reviewed fasting glucose, depression, erectile dysfunction, presenting today for his physical exam. He uses 1% diclofenac gel to treat joint pain, which provides approximately 30% relief. He has depression currently controlled on bupropion, sees his psychiatrist and therapist at [facility]. His medication regimen also includes red yeast rice, tadalafil, fish oil, and milk thistle, the latter of which he takes for liver support. [facility] Medical History Erectile dysfunction Impaired fasting glucose Rotator cuff tear, left Male erectile dysfunction due to corporovenous occlusion History of prostate cancer Chronic left shoulder pain Prostate cancer History of alcoholism Insomnia Loss of libido Sacroiliitis Benign prostatic hyperplasia Degenerative joint disease (DJD) of lumbar spine Depression Surgical History H/O radical prostatectomy Fusion of joint History of foot surgery Bilateral cataracts History of lumbar fusion Family History Father Cancer of prostate Mother Stroke Mental health disorder Maternal Grandmother Stroke Paternal Grandfather Cancer of prostate Sister No problems noted. Sister No problems noted. Son No problems noted. Son No problems noted. Daughter No problems noted. Social History Housing: House Alcohol intake: former Patient Tobacco Use Status: Never used Tobacco e-Cigarette/Vaping Use: Never Used service: No Current occupational status: employed Cognitive needs: No Hearing needs: No Vision needs: Yes Questionnaire PHQ-9 Over the last 2 weeks, how often have you been bothered by any of the following problems? 1. Little interest or pleasure in doing things: more than half the days 2. Feeling down, depressed, or hopeless: more than half the days 3. Trouble falling or staying asleep, or sleeping too much: more than half the days 4. Feeling tired or having little energy: more than half the days 5. Poor appetite or overeating: several days 6. Feeling bad about yourself - or that you are a failure or have let yourself or your family down: several days 7. Trouble concentrating on things, such as reading the newspaper or watching television: more than half the days 8. Moving or speaking so slowly that other people could have noticed. Or the opposite - being so fidgety or restless that you have been moving around a lot more than usual: several days 9. Thoughts that you would be better off or of hurting yourself in some way: not at all Total score: 13 Depression Screening Interpretation: Positive (Followed by Magdi Simon at [facility] in [place] , on 450 mg Bupropion ) Depression Screening Follow-up: Existing condition, In treatment and Community Mental Health Worker F/U Depression Screening Done: Yes 37527 - PHQ-9 Billing: Yes Source: Developed by Drs. Major Gaspar, Velvet Clements, Man Belle and colleagues, with an educational juve from [employer]. Thrive Questionnaire Date Thrive assessed: 12/08/24 Within the past 12 months, did the food you bought not last and you didn't have the money to get more?: Never true Within the past 12 months, did you worry whether your food would run out before you got money to buy more?: Never true Do you have trouble paying for medicines?: No Do you have trouble getting transportation to medical appointments?: No Do you have trouble paying your heating and electricity bill?: No Do you have trouble taking care of your child, family member or friend?: No Do you have trouble with day-to-day activities such as bathing, preparing meals, shopping, managing finances, etc.?: No Are you currently unemployed and looking for a job?: No Are you interested in more education?: Yes Please select the resources that you would like help with: None Currently or been in a relationship where the following occur: No concerns reported THRIVE Score: 0 AUDIT C Alcohol Use Questionnaire (AUDIT-C) 1. How often do you have a drink containing alcohol?: Never Total Score: 0 REGINA-7 AMB Questionnaire REGINA-7 Date REGINA - 7 assessed: 06/03/25 Feeling nervous, anxious, or on edge: 2 = More than half the days Not being able to stop or control worryin = Several days Worrying too much about different things: 2 = More than half the days Trouble relaxin = More than half the days Being so restless that it is hard to sit still: 1 = Several days Becoming easily annoyed or irritable: 2 = More than half the days Feeling afraid as if something awful might happen: 0 = Not at all Total REGINA-7 score (0-4 normal; 5-9 mild; 10-14 moderate; 15-21 severe): 10 Source: Developed by Drs. Major Gaspar, Velvet Clements, Man Belle and colleagues, with an educational juve from [employer]. REGINA-7 Assessment Billing REGINA-7 Assessment Tool: REGINA-7 Assessment 28920 Review of Systems Const Reports no additional complaints Eyes Reports no additional complaints ENT Denies nasal discharge, Denies disequilibrium, Denies tinnitus, Denies sinus pain, Denies sinus pressure and Denies sore throat Card Reports no additional complaints Resp Reports no additional complaints GI Reports no additional complaints Reports as per HPI Musc Reports as per HPI, Denies muscle weakness, Denies numbness and Denies stiffness Skin/Breast Denies lesions, Denies rash and Denies wounds Neuro Denies numbness and Denies disequilibrium Psych Reports as per HPI Endo Reports no additional complaints Ion/Lymph Reports no additional complaints Aller/Immun Reports no additional complaints Physical exam (Primary Care) Vital Signs: Last Vital Signs Temp 98.1 F 06/03/25 09:46 Pulse 73 06/03/25 09:46 Resp 16 06/03/25 09:46 BP 112/70 06/03/25 09:46 Pulse Ox 97 06/03/25 09:46 Oxygen Delivery Method Room Air 06/03/25 09:46 BMI result Body Mass Index 25.2 Tobacco/Smoking Status: Tobacco use Status Tobacco use date assessed 06/03/25 06/03/25 09:48 Patient Tobacco Use Status Never used Tobacco 06/03/25 09:48 e-Cigarette/Vaping Use Never Used 06/03/25 09:48 PHQ-9: PHQ-9 Score PHQ-9: Total score 13 06/11/25 01:16 Depression Screening Interpretation: Positive (Followed by Magdi Simon at [facility] in [place] , on 450 mg Bupropion ) Depression Screening Follow-up: Existing condition, In treatment and Community Mental Health Worker F/U Thrive Assessment: Date of Thrive Assessment Date Thrive assessed 12/08/24 06/03/25 09:48 Currently or been in a relationship where the following occur: No concerns reported Const General: no acute distress and alert Orientation/consciousness: patient oriented x3 HENMT Ears: hearing grossly normal bilaterally, external ears normal and TM's normal bilaterally Eyes General: appearance normal, both eyes and all related structures Neck Neck: Yes full ROM and Yes no lymphadenopathy Resp Auscultation: clear to auscultation bilaterally Cardio Rate: regular rate Rhythm: regular rhythm Heart sounds: S1 normal heart sound present and S2 normal heart sound present GI Palpation (GI): Soft to palpation, nontender, no guarding and no masses Auscultation: normal bowel sounds General: Yes no CVA tenderness Back/Spine/Pelvis Back: no CVA tenderness and No back tenderness Skin Lesions: no lesions Rashes: no rashes Neuro General: patient oriented x3, gait normal, moves all extremities and no focal motor deficits Extrem General: Yes full ROM, Yes no joint enlargement, Yes no clubbing, cyanosis or edema and Yes normal gait Psych Appearance: grossly normal and well kempt Mental Status: mental status grossly normal Speech and movement: Normal speech and movement present Affect: normal affect Coding Level of Care Code Est Pt Prev Care 40-64y(61345) Diagnoses Annual visit for general adult medical examination with abnormal findings Z00. Chest congestion R09.89 Recurrent major depressive disorder, in partial remission F33.41 Active/Remission status: in partial remission Depression Type: major depressive disorder Major depression recurrence: recurrent History of prostate cancer Z85.46 Additional Codes REGINA-7 Assessment Billing - REGINA-7 Assessment Tool: REGINA-7 Assessment 30079 ([id number]) PHQ-9 - 13628 - PHQ-9 Billing: Yes ([id number]) Assessment & Plan Assessment & Plan (1) Annual visit for general adult medical examination with abnormal findings: Code(s): Z00.01 - Encounter for general adult medical examination with abnormal findings Plan: Will check appropriate labs. Continue regular dental visit every 6 months and regular eye exams, at least every 2 years. Take adequate calcium in diet and vitamin-D 3 at 2000 IU per cap once a day, in addition to weight-bearing exercises to help maintain good muscle tone and weight control. Due for repeat colon cancer screening in 2025. Reminded to get his flu vaccine and Tdap once feeling better (2) Chest congestion: Code(s): R09.89 - Other specified symptoms and signs involving the circulatory and respiratory systems Plan: Checked for COVID flu and RSV infection, chest x-ray ordered, empirically started on azithromycin and advised to follow-up if no improvement of symptoms after 5 days (3) Depression: Code(s): F32.9 - Major depressive disorder, single episode, unspecified Category: Medical Qualifiers: Active/Remission status: in partial remission Depression Type: major depressive disorder Major depression recurrence: recurrent Qualified Code(s): F33.41 - Major depressive disorder, recurrent, in partial remission Plan: Controlled on bupropion, currently under psychiatric care and [facility] (4) History of prostate cancer: Code(s): Z85.46 - Personal history of malignant neoplasm of prostate Category: Medical Plan: Currently followed by Urology Orders: Orders SARS-CoV2/FLU/RSV 06/03/25 R39.9 - Unspecified symptoms and signs involving the genitourinary system, R05.9 - Cough, unspecified Alanine Aminotransferase 06/03/25 F33.41 - Major depressive disorder, recurrent, in partial remission, R73.01 - Impaired fasting glucose, Z13.220 - Encounter for screening for lipoid disorders, N52.9 - Male erectile dysfunction, unspecified, Z00.01 - Encounter for general adult medical examination with abnormal findings Lipid Panel 06/03/25 F33.41 - Major depressive disorder, recurrent, in partial remission, R73.01 - Impaired fasting glucose, Z13.220 - Encounter for screening for lipoid disorders, N52.9 - Male erectile dysfunction, unspecified, Z00.01 - Encounter for general adult medical examination with abnormal findings Vitamin D 25-OH Total 06/03/25 F33.41 - Major depressive disorder, recurrent, in partial remission, R73.01 - Impaired fasting glucose, Z13.220 - Encounter for screening for lipoid disorders, N52.9 - Male erectile dysfunction, unspecified, Z00.01 - Encounter for general adult medical examination with abnormal findings XR chest 2V 06/03/25 R09.89 - Other specified symptoms and signs involving the circulatory and respiratory systems, R05.9 - Cough, unspecified Testosterone, Free/Total 06/03/25 F33.41 - Major depressive disorder, recurrent, in partial remission, R73.01 - Impaired fasting glucose, Z13.220 - Encounter for screening for lipoid disorders, N52.9 - Male erectile dysfunction, unspecified, Z00.01 - Encounter for general adult medical examination with abnormal findings Hemoglobin A1c 06/03/25 F33.41 - Major depressive disorder, recurrent, in partial remission, R73.01 - Impaired fasting glucose, Z13.220 - Encounter for screening for lipoid disorders, N52.9 - Male erectile dysfunction, unspecified, Z00.01 - Encounter for general adult medical examination with abnormal findings Complete Blood Count Auto Diff 06/03/25 F33.41 - Major depressive disorder, recurrent, in partial remission, R73.01 - Impaired fasting glucose, Z13.220 - Encounter for screening for lipoid disorders, N52.9 - Male erectile dysfunction, unspecified, Z00.01 - Encounter for general adult medical examination with abnormal findings Basic Metabolic Panel Fasting 06/03/25 F33.41 - Major depressive disorder, recurrent, in partial remission, R73.01 - Impaired fasting glucose, Z13.220 - Encounter for screening for lipoid disorders, N52.9 - Male erectile dysfunction, unspecified, Z00.01 - Encounter for general adult medical examination with abnormal findings Aspartate Amino Transferase 06/03/25 F33.41 - Major depressive disorder, recurrent, in partial remission, R73.01 - Impaired fasting glucose, Z13.220 - Encounter for screening for lipoid disorders, N52.9 - Male erectile dysfunction, unspecified, Z00.01 - Encounter for general adult medical examination with abnormal findings Medications: New azithromycin For 250 mg dose pack: take 500 mg today (day 1), then 250 mg for 4 days (days 2-5) PO 6 tabs 0RF
--- OUTSIDE RECORDS SUMMARY | 2025-06-03 10:12 | XMS_ITS | Data Portability ---
Author Organization [place] - [facility], Allergy Address [address] [address] Care Team Providers Care Cloud Consultant Name Role Phone EUGENE GAMEZ Primary Care Provider Assessment Encounter Date Assessment Date Assessment LastModified by Organization Details LastModified Time 02/17/2025 02/17/2025 59-year-old male presents today for evaluation of persistent feeling of pressure and difficulty clearing his left ear following diving in October, which has persisted despite eardrops and antibiotics. On exam today, there is a squamous cast with some drop debris anteriorly superiorly on the TM. I do not see any evidence of effusion or infection. I recommended using vinegar drops to help clear the cast and debris. I recommended decongestant use with flying. We did review his audiogram which showed a symmetric mild high-frequency loss. We did discuss if symptoms persist after another 2 to 3 months we can reassess if there is residual cast which needs to be removed. [email or web address] Not available 02/17/2025 09:57:30 05/06/2025 05/06/2025 59-year-old male with mild high-frequency sensorineural hearing loss presents for reevaluation of persistent left-sided aural pressure. This started 6 months ago after an ear infection. Otologic examination is benign. TMs are intact and middle ear spaces are well aerated. Reassured patient there is no longer a squamous cast overlying the left tympanic membrane. Tympanometry was normal 2 months ago. Discussed he may be experiencing mild eustachian tube dysfunction, and recommend trial of intranasal fluticasone daily for 6 weeks. Reviewed opposite hand technique to aim toward the ear. Patient will return for reevaluation in 6-8 weeks. [email or web address] Not available 05/06/2025 15:25:44 Plan of Treatment Reminders Order Date Submit Date Provider Last Modified By Organization Details Last Modified Time Details Appointments Establish ed 15 2025 09:15A M CLARA MARTÍNEZ PA-C Not available Not available Not available Lab None recorded. Referral None recorded. Procedures None recorded. Surgeries None recorded. Imaging None recorded. Medication Orders fluticaso ne propionat e 50 mcg/actua tion nasal spray,gracia pension 2024 025 [place] [address] [id number], [address] [place], [address], 05/28/2025 14:08:58 Patient TargetsNo targets recorded. Patient InstructionsNo instructions recorded. Reason for Referral None Reported. Results Created Date Observation Date Name Description Value Unit Range Abnormal Flag Note LastModifiedBy Organization Detail LastModifiedTime 02/18/20 25 audio gram No observ ation record ed. BARCODE Not Available 2024 12:02:19 Result Notes None recorded. Problems Name Problem SNOMED Code Status Onset Date Resolution Date Notes Provider Name and Address Organization Details Recorded Time Sensorineural hearing loss of bilateral ears 022796560 Active 2024 Westley MCGREGOR [address] [place] [address], [phone], [facility] 09:08:36 Abnormal auditory perception 93215928 Active 2024 CLARA MARTÍNEZ PA-C [address], [address], [facility] 14:10:09 Problem Notes None recorded. Procedures Surgical History Date Name Laterality Status Provider Name and Address Organization Details Recorded Time 02/17/2025 Comp Audio with Tymps - 72229 & 06506 completed Westley MCGREGOR 100 [facility],[address], [address], [facility] - [facility] 02/17/2025 09:07:53 Imaging Results None recorded. Procedure Notes None recorded. Medical Equipment None Reported. Allergies No known drug allergies Medications Name Sig Start Date Stop Date Status Note LastModified by Organization Details LastModified Time hydroxyzine HCl 25 mg tablet TAKE 1-2 TABLETS BY MOUTH ONCE A DAY NEEDED active Not Available Not Available No t Available fluticasone propionate 50 mcg/actuati on nasal spray,suspe nsion INSTILL 2 SPRAYS IN EACH NOSTRIL DAILY IN THE MORNING FOR LEFT AURAL PRESSURE 2024 active Not Available Not Available Not Avai lable amoxicillin 875 mg-potassiu m clavulanate 125 mg tablet TAKE 1 TABLET BY MOUTH EVERY 12 HOURS FOR 10 DAYS 02/17 completed Not Available Not Available Not Available ciprofloxac in 0.3 %-dexametha sone 0.1 % ear drops,suspe nsion PLACE 4 DROPS INTO THE LEFT EAR 2 TIMES A DAY. 02/17 completed Not Available Not Available Not Available bupropion HCl XL 300 mg 24 hr tablet, extended release TAKE 1 TABLET BY MOUTH EVERY DAY active Not Available Not Available No t Available bupropion HCl XL 150 mg 24 hr tablet, extended release TAKE 1 TABLET BY MOUTH EVERY MORNING 02/17 completed Not Available Not Available Not Available tadalafil 5 mg tablet TAKE 1 TABLET BY MOUTH EVERY DAY IN THE MORNING active Not Available Not Available No t Available Vitals Date Recorded Body height Body mass index (BMI) Body weight Provider Name and Address Organization Details Last Updated DateTime 02/17/2025 177.8 cm 26.1 kg/m2 25616.81 g Beckie Coombs [place] - [facility] 02/17/2025 09:30:34 Date Recorded Body height Body mass index (BMI) Body weight Provider Name and Address Organization Details Last Updated DateTime 05/06/2025 177.8 cm 26.1 kg/m2 36616.81 g Saadia Moran [place] - [facility] 05/06/2025 13:42:16 Social History Question Answer Notes LastModified by Organizat ion Details LastModified Time Tobacco Smoking Status Never Smoker HARRIETT ALCALA MD [address] [place] [address], [address], [place] - [facility] 02/17/2025 09:54:39 What Type Of Golf Course Patroller Do You Use? None Information not available 02/17/2025 Which Illicit Or Recreational Drugs Have You Used? Marijuana Information not available 02/17/2025 How Many Years Have You Used Illicit Or Recreational Drugs? 5 Information not available 02/17/2025 Do You Have Any Pets? No Information not available 02/17/2025 Are You Passively Exposed To Smoke? Yes Information no t available 02/17/2025 Are There Any Smokers In Your House? Yes Information not available 02/17/2025 Have You Used IV Drugs? No Information not available 02/17/2025 Sex: Unknown Functional Status Question Answer Note LastModified by Organization Details LastModified Time Do you use any illicit or recreational drugs? Yes Information not available 02/17/2025 Do you or have you ever used any other forms of tobacco or nicotine? No Information not available 02/17/2025 What is your level of alcohol consumption? None Information not available 02/17/2025 What type of noise exposure are you exposed to? noExposureToExcessiveNoise Infor mation not available 02/17/2025 Mental Status None recorded. Family History Nothing Reported. Medical History Condition Response Hearing Loss Y Past Encounters Encounter ID Performer Location Encounter Start Date Encounter Closed Date Diagnosis/Indication Diagnosis SNOMED-CT Code Diagnosis ICD10 Code Diagnosis IMO Codes Diagnosis Note [id number] HARRIETT ALCALA MD [facility] [address] [address] 02/17/2025 08:30:46 02/17/2025 09:44:48 Sensorineural hearing loss of bilateral ears 462104275 H90.3 [id number] Audiologic al evaluation results:Ri ght ear:Normal hearing from 250 through 2000 Hz sloping to a mild sensorineu ral hearing loss with excellent word recognitio n.Left ear:Normal hearing from 250 through 2000 Hz sloping to a mild sensorineu ral hearing loss with excellent word recognitio n. Tympanomet ry:Right Ear:Type ALeft Ear:Type A [id number] CLARA MARTÍNEZ PA-C [facility] [address] [place] [address] 05/06/2025 13:15:41 05/06/2025 14:13:05 Abnormal auditory perception 74825463 H93.292 [id number] Sensorineu ral hearing loss of bilateral ears 010457327 H90.3 [id number] Health Concerns Section Related Observation LastModified by Organization Detai ls LastModified Time None Recorded Concern Status LastModified by Organization Details LastModified Time None Recorded Advance Directives Directive None Recorded Payers Insurance Date Sequence Insurance Name Policy Number Policy Zhu Covered Member ID Zhu Member ID Guarantor Name 05/06/2025 1 [facility] [id number] 2 Solomon Dougherty [id number] Solomon Dougherty Notes Date Note Type Note Provider Name and Address Organization Details Recorded Time 02/17/2025 text/html ROS as noted in the [facility] 59-year-old male presents today for evaluation. He went scuba diving in October, went too deep, popped the ears, used alcohol drops, and was given Augmentin and then eardrops. There was some slight erythema noted on exam. No previous trouble with diving. Feels that there is cotton in the ear. Dull pressure. No sharp pain. Has had trouble clearing the ears since then. No allergies. No tinnitus. Overall hearing is ok. No dizziness. HARRIETT ALCALA MD [address] [place] [address], [phone], [facility] 02/17/2025 09:57:43 05/06/2025 text/html ROS as noted in the [facility] 59-year-old male with mild high-frequency sensorineural hearing loss presents for reevaluation of persistent left-sided aural pressure. He feels he cannot pop the left ear. This started 6 months ago after an ear infection. Endorses mild ear pain and pressure today. Denies hearing changes or ear drainage. He was found to have a squamous cast against the left tympanic membrane 2 months ago. ELLEN LAU MD [address] [place] [address], [phone], [facility] 05/07/2025 09:03:27
--- OUTSIDE RECORDS SUMMARY | 2025-06-03 10:12 | XMS_ITS | Encounter Summary ---
Author Organization [facility] Address [address] [place] [address] Phone Care Team Providers Care Legal Billing Specialist Name Role Phone Rocio Singh MD Primary Care Provider Rocio Singh MD Primary Care Provider Rocio Singh MD Unavailable Reason for Referral * MRI/CAT Scan - Closed Specialty Diagnoses / Procedures Referred By Contac t Referred To Contact Procedures CT Abdomen Outside (No Interpretation) System, Provider Not In, [facility] [address] [address] Referral ID Status Reason Start Date Expiration Date Visits Re quested Visits Authorized [id number] Closed 11/28/2018 11/28/2019 1 1 Encounter Details Date Type Department Care Team (Late st Contact Info) Description 11/28/2018 Ancillary Orders [facility],Outside Imaging [address] [place] [address] System, Provider Not In, [facility] [address] [address] Social History Tobacco Use Types Packs/Day Years Used Date Smoking Tobacco: Never Smokeless Tobacco: Never Alcohol Use Standard Drinks/Week Comments No 0 (1 standard drink = 0.6 oz pur e alcohol) quit 9 yrs ago Sex and Gender Information Value Date Recorded Sex Assigned at Male 09/17/2018 5:14 AM EDT Legal Sex Male 3:25 PM EDT Gender Identity Male 09/17/2018 5:14 AM EDT Sexual Orientation Straight 10/28/2024 10 :32 AM EDT documented as of this encounter Plan of Treatment Not on file documented as of this encounter Results * CT Abdomen Outside (No Interpretation) (09/28/2018 12:00 AM EDT) Narrative SYSTEMGENERATED, DOCUMENTATION - 11/28/2018 8:28 AM EDT This study is for PACS storage only and not for interpretation. us Provider Not In System [facility] OUTSIDE IMAGING W /OUT INTERPRETATION Final Result documented in this encounter Visit Diagnoses Not on filedocumented in this encounter Care Teams Legal Billing Specialist Relationship Specialty Start Date End Date Rocio Singh MD [address] [place] [address] [place] [address] PCP - General 06/15/17 06/17/21 Rocio Singh MD [address] [place] [address] [place] [address] PCP - General Internal Medicine 06/18/21 Rocio Singh MD [address] [place] [address] [place] [address] 06/18/21 documented as of this encounter Additional Source Comments The information contained in this document represents components of the legal health record. It is not the complete legal health record.[facility]
--- OUTSIDE RECORDS SUMMARY | 2025-06-03 10:12 | XMS_ITS | Encounter Summary ---
Author Organization [facility] Address [address] [place] [address] Phone Care Team Providers Care Mill Attendant Name Role Phone Rocio Singh MD Primary Care Provider Rocio Singh MD Primary Care Provider Rocio Singh MD Unavailable [phone] Encounter Details Date Type Department Care Team (Late st Contact Info) Description 11/15/2018 Procedure Pass [facility], [address] [address] Social History Tobacco Use Types Packs/Day Years [...] on file documented as of this encounter Visit Diagnoses Not on filedocumented in this encounter Care Teams Mill Attendant Relationship Specialty Start Date End Date Rocio Singh MD [facility] [place] [address] PCP - General 06/15/17 06/17/21 Rocio Singh MD [facility] [place] [address] PCP - General Internal Medicine 06/18/21 Rocio Singh MD [address] [facility] [place] [address] 06/18/21 documented as of this encounter Additional Source Comments The information contained in this document represents components of the legal health record. It is not the complete legal health record.[facility]
--- OUTSIDE RECORDS SUMMARY | 2025-06-03 10:12 | XMS_ITS | Encounter Summary ---
Author Organization [facility] Address [address] [place] [address] Phone Care Team Providers Care Floor Layer Tile Name Role Phone Rocio Singh MD Primary Care Provider Rocio Singh MD Primary Care Provider Rocio Singh MD Unavailable Encounter Details Date Type Department Care Team (Late st Contact Info) Description 06/23/[address] [facility], X-Ray - [place] [address] [place], [place] [id number] Man Reyez MD [address] [place] [address] [email or web address] History of lumbar spine x-ray Social History Tobacco Use Types Packs/Day Years Used Date Smoking Tobacco: Never Assessed Sex and Gender Information Value Date Recorded Sex Assigned at Male 09/17/2018 5:14 AM EDT Legal Sex Male 3:25 PM EDT Gender Identity Male 09/17/2018 5:14 AM EDT Sexual Orientation Straight 10/28/2024 10 :32 AM EDT documented as of this encounter Plan of Treatment Not on file documented as of this encounter Results * XR LUMBOSACRAL SPINE 4 OR MORE VIEWS (06/23/2017 4:07 PM EST) Anatomical Region Laterality Modality L-spine Radiographic Keyla ging 06/23/2017 5:33 PM EST Impressions 06/23/2017 5:37 PM EST Status post fusion at L5-S1. No evidence of instability. POS - [id number] Narrative 06/23/2017 5:37 PM EST HISTORY: Low back pain, status-post fusion. COMPARISON: None. FINDINGS: AP and lateral views obtained. Lateral views obtained in the neutral position and during flexion and extension. Anterior fusion hardware at L5-S1. Markers from radiolucent disc cage within the L5-S1 disc space. No evidence of compression fractures or subluxations. Small anterior osteophytes at multiple levels. Disc spaces, overall, are well-maintained. Procedure Note Edwin Sahni MD - 06/23/2017 HISTORY: Low back pain, status-post fusion. COMPARISON: None. FINDINGS: AP and lateral views obtained. Lateral views obtained in the neutralposition and during flexion and extension. Anterior fusion hardware at L5-S1. Markers from radiolucent disc cagewithin the L5-S1 disc space. No evidence of compression fractures orsubluxations. Small anterior osteophytes at multiple levels. Discspaces, overall, are well-maintained. IMPRESSION: Status post fusion at L5-S1. No evidence of instability. POS - [id number] Man Reyez MD IMG XR SPINE Final Res ult documented in this encounter Visit Diagnoses Diagnosis History of lumbar spine x-ray History of lumbar spine x-ray documented in this encounter Care Teams Floor Layer Tile Relationship Specialty Start Date End Date Rocio Singh MD [address] [facility] [place] [address] PCP - General 06/15/17 06/17/21 Rocio Singh MD [address] [place] [address] PCP - General Internal Medicine 06/18/21 Rocio Singh MD [facility] [place] [address] 06/18/21 documented as of this encounter Additional Source Comments The information contained in this document represents components of the legal health record. It is not the complete legal health record.[facility]
--- OUTSIDE RECORDS SUMMARY | 2025-06-03 10:12 | XMS_ITS | Encounter Summary ---
Author Organization [facility] Address [address] [place] [address] Phone Care Team Providers Care Blowing Weasand Name Role Phone Rocio Singh MD Primary Care Provider Rocio Singh MD Unavailable + [phone] Encounter Details Date Type Department Care Team (Late st Contact Info) Description 06/28/2023 Procedure Pass [facility], [address] [place] [address] Social History Tobacco Use Types Packs/Day Years Used Date Smoking Tobacco: Never Smokeless Tobacco: Never Alcohol Use Standard Drinks/Week Comments No 0 (1 standard drink = 0.6 oz pur e alcohol) quit 9 yrs ago Education Answer Date Recorded Are you interested in more education? Not on stacie e 10/07/2022 Are you concerned about learning? Not on file 10/07/2022 No 10/07/2022 No 10/07/2022 Digital Access Answer Date Recorded No 11/08/2022 No 11/08/2022 Reliable internet access at home? Not on file 11/08/2022 Device with a working camera? Not on file Sex and Gender Information Value Date Recorded Sex Assigned at Male 09/17/2018 5:14 AM EDT Legal Sex Male 3:25 PM EDT Gender Identity Male 09/17/2018 5:14 AM EDT Sexual Orientation Straight 10/28/2024 10 :32 AM EDT documented as of this encounter Last Filed Vital Signs Vital Sign Reading Time Taken Comments Blood Pressure - - Pulse - - Temperature - - Respiratory Rate - - Oxygen Saturation - - Inhaled Oxygen Concentration - - Weight 81.6 kg (180 lb) 06/30/2023 10:41 AM EST Height 180.3 cm (5' 11 ) 06/30/2023 10:41 AM EST Body Mass Index 25.1 06/30/2023 10:41 AM EST documented in this encounter Plan of Treatment Not on file documented as of this encounter Visit Diagnoses Not on filedocumented in this encounter Care Teams Blowing Weasand Relationship Specialty Start Date End Date Rocio Singh MD [address] [facility] [place] [address] PCP - General Internal Medicine 06/18/21 Rocio Singh MD [address] [facility] [place] [address] 06/18/21 documented as of this encounter Additional Source Comments The information contained in this document represents components of the legal health record. It is not the complete legal health record.[facility]
--- OUTSIDE RECORDS SUMMARY | 2025-06-03 10:12 | XMS_ITS | Encounter Summary ---
Author Organization [facility] Address [address] [place] [address] Phone Care Team Providers Care Medical Education Manager Name Role Phone Rocio Singh MD Primary Care Provider Rocio Singh MD Primary Care Provider Rocio Singh MD Unavailable [phone] Encounter Details Date Type Department Care Team (Late st Contact Info) Description 08/15/2017 Procedure Pass [place] Admitting Dept - Virtual Department [address] [place] [address] Social History Tobacco Use Types Packs/Day Years [...] on filedocumented in this encounter Care Teams Medical Education Manager Relationship Specialty Start Date End Date Rocio Singh MD [facility] [place] [address] PCP - General 06/15/17 06/17/21 Rocio Singh MD [facility] [place] [address] PCP - General Internal Medicine 06/18/21 Rocio Singh MD [address] [facility] [place] [address] 06/18/21 documented as of this encounter Additional Source Comments The information contained in this document represents components of the legal health record. It is not the complete legal health record.[facility]
--- OUTSIDE RECORDS SUMMARY | 2025-06-03 10:12 | XMS_ITS | Continuity of Care Document ---
Author Organization [place] - [facility], [facility] Address [address] [place] [address] Care Team Providers Care Mover Helper Name Role Phone EUGENE GAMEZ Primary Care Provider [phone] Assessment Encounter Date Assessment Date Assessment LastModified by Organization Details LastModified Time 05/06/2025 05/06/2025 59-year-old male with mild high-frequency [...] mcg/actua tion nasal spray,[facility] pension [address]/[facility], [address] [place], [address], 05/28/2025 14:08:58 Patient TargetsNo targets recorded. Patient InstructionsNo instructions recorded. Reason for Referral None Reported. Problems Name Problem SNOMED Code Status Onset Date Resolution Date Notes Provider Name and Address Organization Details Recorded Time Sensorineural hearing loss of bilateral ears 685199944 Active 2024 Westley MCGREGOR 100 [facility],[address], [place], [address], [facility] 09:08:36 Abnormal auditory perception 48065829 Active 2024 CLARA MARTÍNEZ PA-C 100 [facility], [place], [address], [facility] 14:10:09 Problem Notes None recorded. Procedures Surgical History Date Name Laterality Status Provider Name and Address Organization Details Recorded Time 02/17/2025 Comp Audio with Tymps - 24306 & 02167 completed Westley MCGREGOR 100 [facility] [address], [place], [address], [facility] 02/17/2025 09:07:53 Imaging Results None recorded. [...] Updated DateTime 05/06/2025 177.8 cm 26.1 kg/m2 75603.81 g Saadia Moran [place] - [facility] 05/06/2025 13:42:16 Social History Question Answer Notes LastModified by Organizat ion Details LastModified Time Tobacco Smoking Status Never Smoker HARRIETT ALCALA MD [address] [place] [address], [phone], [place] - [facility] 02/17/2025 09:54:39 What Type Of Telecommunications Support Do You Use? None Information not available [...] ICD10 Code Diagnosis IMO Codes Diagnosis Note [id number] CLARA MARTÍNEZ PA-C [facility] [address] [address] 05/06/2025 13:15:41 05/06/2025 14:13:05 Abnormal auditory perception 15007526 H93.292 [id number] Sensorineu ral hearing loss of bilateral ears 232360283 H90.3 65547643 Health Concerns Section Related Observation LastModified by Organization Detai ls LastModified Time None Recorded Concern Status LastModified by Organization Details LastModified Time None Recorded Payers Encounter Date Sequence Insurance Name Policy Number Policy Zhu Covered Member ID Zhu Member ID Guarantor Name 05/06/[address] [facility] [id number] 2 Solomon Dougherty [id number] Solomon Dougherty Notes Date Note Type Note Provider Name and Address Organization Details Recorded Time 05/06/2025 text/html ROS as noted in the HPI 59-year-old male with mild high-frequency sensorineural hearing [...] membrane 2 months ago. ELLEN LAU MD [address] [place] [address], [place], [address], [facility] - [facility] 05/07/2025 09:03:27
--- OUTSIDE RECORDS SUMMARY | 2025-06-03 10:12 | XMS_ITS | Encounter Summary ---
Author Organization [facility] Address [address] [place] [address] Phone Care Team Providers Care Plan Consultant Name Role Phone Rocio Singh MD Primary Care Provider Rocio Singh MD Primary Care Provider Rocio Singh MD Unavailable [phone] Encounter Details Date Type Department Care Team (Late st Contact Info) Description 11/28/2018 Ancillary Orders [facility],Outside Imaging [address] [place], [place] [id number] System, Provider Not In, [place] [address] Social History Tobacco Use Types Packs/Day Years [...] on filedocumented in this encounter Care Teams Plan Consultant Relationship Specialty Start Date End Date Rocio Singh MD [facility] [address] [phone] PCP - General 06/15/17 06/17/21 Rocio Singh MD [address] [place] [address] [place] [address] PCP - General Internal Medicine 06/18/21 Rocio Singh MD [address] [place] [address] [place] [address] 06/18/21 documented as of this encounter Additional Source Comments The information contained in this document represents components of the legal health record. It is not the complete legal health record.[facility]
--- OUTSIDE RECORDS SUMMARY | 2025-06-03 10:12 | XMS_ITS | Encounter Summary ---
Author Organization [facility] Address [address] [place] [address] Phone Care Team Providers Care Recreation Establishment Manager Name Role Phone Rocio Singh MD Primary Care Provider Rocio Singh MD Primary Care Provider Rocio Singh MD Unavailable [phone] Encounter Details Date Type Department Care Team (Late st Contact Info) Description 11/15/2018 Procedure Pass [facility], [address] [address] Social History Tobacco Use Types Packs/Day Years [...] on filedocumented in this encounter Care Teams Recreation Establishment Manager Relationship Specialty Start Date End Date Rocio Singh MD [facility] [place] [address] PCP - General 06/15/17 06/17/21 Rocio Singh MD [facility] [place] [address] PCP - General Internal Medicine 06/18/21 Rocio Singh MD [address] [facility] [place] [address] 06/18/21 documented as of this encounter Additional Source Comments The information contained in this document represents components of the legal health record. It is not the complete legal health record.[facility]
--- OUTSIDE RECORDS SUMMARY | 2025-06-03 10:12 | XMS_ITS | Clinical Summary ---
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 Takes a 20mg and 10 mg capsule every morning Active VITAMIN A ORAL Take 1 tablet by mouth daily. Active ASCORBATE CALCIUM (VITAMIN C ORAL) Take 1 tablet by mouth daily. Active VITAMIN B COMPLEX ORAL Take 1 tablet by mouth daily. Active GLUCOSAMINE SULFATE (GLUCOSAMINE ORAL) Take 2 tablets by mouth daily. Active CALCIUM ORAL Take 1 tablet by mouth daily. Active CHOLECALCIFEROL , VITAMIN D3, (VITAMIN D3 ORAL) Take 1 capsule by mouth daily. Active DOCOSAHEXANOIC ACID/EPA (FISH OIL ORAL) Take 1 capsule by mouth daily. Active ibuprofen (ADVIL,MOTRIN) 800 MG tablet Take 1 tablet (800 mg total) by mouth every 8 (eight) hours as needed for pain (specific location in comments). 30 tablet 9 Active Additional Information Patient not taking.Reported on 10/28/2024 tadalafiL (CIALIS) 5 MG tablet Take 5 mg by mouth every morning. 5 Active ciprofloxacin-d exAMETHasone (CIPRODEX) otic suspension Place 4 drops into the left ear 2 (two) times a day. 7.5 mL 5 Active eszopiclone (LUNESTA) 2 MG Tab 1 Active tamsulosin (FLOMAX) 0.4 mg Cap 1 Active Active Problems Problem Noted Date Diagnosed Date Bilateral hip pain 11/15/2018 Social History Tobacco Use Types Packs/Day Years [...] Orientation Straight 10/28/2024 10 :32 AM EDT Last Filed Vital Signs Vital Sign Reading Time Taken Comments Blood Pressure 148/107 10/28/2024 12:01 PM EDT Pulse 99 10/28/2024 11:33 AM EDT Temperature 36.8 C (98.2 F) 10/28/2024 11:33 AM EDT Respiratory Rate 16 10/28/2024 11:33 AM EDT Oxygen Saturation 99% 10/28/2024 11:33 AM EDT Inhaled Oxygen Concentration - - Weight 81.6 kg (180 lb) 06/30/2023 10:41 AM EST Height 180.3 cm (5' 11 ) 06/30/2023 10:41 AM EST Body Mass Index 25.1 06/30/2023 10:41 AM EST Plan of Treatment Health Maintenance Due Date Last Done Comments Adult Td,Tdap Booster 1965 LIPID PANEL 1965 DEPRESSION SCREENING 1977 HEPATITIS C SCREENING 11/04/1983 HIV ONE-TIME SCREENING (18-65 YEARS) 11/04/1983 COLOGUARD 2010 COLONOSCOPY 2010 COLORECTAL CANCER SCREENING 2010 FIT TEST 2010 FOBT 2010 SIGMOIDOSCOPY 2010 VIRTUAL COLONOSCOPY 2010 PNEUMOCOCCAL VACCINES (50+ years) (1 of 1 - PCV) 11/04/2015 ZOSTER VACCINES (1 of 2) 11/04/2015 SCREENING FOR DIABETES 06/18/2024 06/18/2021 INFLUENZA VACCINE (#1) 2025 , 05/19/2023, 04/08/2022, Additional history exists COVID-19 VACCINE ( - 2024- season) 2025 07/19/2021, 12/10/2020, 11/12/2020 RSV VACCINE (1 - 1-dose 75+ series) 2040 SMOKING STATUS SCREENING (Once After 26 Yrs) Completed 07/19/2023 HEPATITIS A VACCINES Aged Out No long er eligible based on patient's age to complete this topic HIB VACCINES Aged Out No longer eligi ble based on patient's age to complete this topic MENINGOCOCCAL VACCINES (ACWY) Aged Out No longer eligible based on patient's age to complete this topic MENINGOCOCCAL VACCINES (B) Aged Out N o longer eligible based on patient's age to complete this topic Medical Devices Implanted Type [employer] Device Identifier Shelf Expiration Date Model / Serial / Lot Filler Bone Sm Graft Demineralized Orthoblend Container 10ml Volume - [id number] Implanted:Qty: 1 on 08/15/2017 by Man Reyez MD at [facility] STANDARD Left: Sacrum [employer] 04/04/2019 [id number] / [id number] / Device Threaded 12x50 [place] [employer] Fusion System Strl Spine Code 56 - [id number] Implanted:Qty: 1 on 08/15/2017 by Man Reyez MD at [facility] Left: Sacrum [employer] 08/31/2024 [id number] / / [id number] Device Threaded 12x50 [place] Si Fusion System Strl Spine Code 56 - [id number] Implanted:Qty: 1 on 08/15/2017 by Man Reyez MD at [facility] Left: Sacrum [employer] 05/24/2025 [id number] / / [id number] Insurance [place] [facility] [facility] [place]: [place] [address] Care Teams Music Engraver Relationship Specialty Start Date End Date Rocio Singh MD [address] [facility] [place] [address] PCP - General Internal Medicine 06/18/21 Rocio Singh MD [address] [facility] [place] [address] 06/18/21 Additional Source Comments The information contained in this document represents components of the legal health record. It is not the complete legal health record.[facility]
== END 2025-06-03 10:31 | disposition home or self-care (01) ==
LOC: HO.HMCC 09:28
PROVIDERS: PCP Internal Medicine; Visit Provider Internal Medicine
DX: Z00.01 Encounter for general adult medical examination with abnormal findings (principal); R09.89 Other specified symptoms and signs involving the circulatory and respiratory systems; F33.41 Major depressive disorder, recurrent, in partial remission; Z85.46 Personal history of malignant neoplasm of prostate

== ENCOUNTER 2025-06-03 09:27 | Outpatient (REF) | payer OTHER, SELFPAY ==
--- NOTE | ~2025-06-03 | XR_ITS ---
EXAMINATION: XR CHEST 2 VIEWS HISTORY: R09.89 - Other specified symptoms and signs involving the circulatory... COMPARISON: Comparison is made with the prior examination dated 03/08/2019. FINDINGS: PA and lateral views of the chest are submitted. The lungs are expanded and clear. There is no pleural effusion, pneumothorax, or pulmonary vascular congestion. The heart is normal in size. There is degenerative disc disease of the spine. XR/XR chest 2V IMPRESSION: No acute cardiopulmonary abnormality. Electronically signed by: Major Chan MD 06/03/2025 10:50 AM EST
--- OUTSIDE RECORDS SUMMARY | 2025-06-03 11:47 | XMS_ITS | Data Portability ---
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 Patient [...] Time Sensorineural hearing loss of bilateral ears 090663611 Active 2024 Westley MCGREGOR [address] [place] [address], [phone], [facility] 09:08:36 Abnormal auditory perception 76644041 Active 2024 CLARA MARTÍNEZ PA-C [address], [address], [facility] 14:10:09 Problem Notes None recorded. Procedures Surgical History Date Name Laterality Status Provider Name and Address Organization Details Recorded Time 02/17/2025 Comp Audio with Tymps - 18548 & 33825 completed Westley MCGREGOR 100 [facility],[address], [address], [facility] - [facility] 02/17/2025 09:07:53 Imaging Results None recorded. [...] Updated DateTime 02/17/2025 177.8 cm 26.1 kg/m2 17576.81 g Beckie Coombs [place] - [facility] 02/17/2025 09:30:34 Date Recorded Body height Body mass index (BMI) Body weight Provider Name and Address Organization Details Last Updated DateTime 05/06/2025 177.8 cm 26.1 kg/m2 04928.81 g Saadia Moran [place] - [facility] 05/06/2025 13:42:16 Social History Question Answer Notes LastModified by Organizat ion Details LastModified Time Tobacco Smoking Status Never Smoker HARRIETT ALCALA MD [address] [place] [address], [phone], [place] - [facility] 02/17/2025 09:54:39 What Type Of Supervisor Hard Candy Do You Use? None Information not available [...] ICD10 Code Diagnosis IMO Codes Diagnosis Note [id number] HARRIETT ALCALA MD [facility] [address] [address] 02/17/2025 08:30:46 02/17/2025 09:44:48 Sensorineural hearing loss of bilateral ears 205858535 H90.3 [id number] Audiologic al evaluation results:Ri ght ear:Normal hearing from 250 through 2000 Hz sloping to a mild sensorineu ral hearing loss with excellent word recognitio n.Left ear:Normal hearing from 250 through 2000 Hz sloping to a mild sensorineu ral hearing loss with excellent word recognitio n. Tympanomet ry:Right Ear:Type ALeft Ear:Type A [id number] CLARA MARTÍNEZ PA-C [facility] [address] [place] [address] 05/06/2025 13:15:41 05/06/2025 14:13:05 Abnormal auditory perception 11303733 H93.292 57471215 Sensorineu ral hearing loss of bilateral ears 471019499 H90.3 84883857 Health Concerns Section Related Observation LastModified by Organization Detai ls LastModified Time None Recorded Concern Status LastModified by Organization Details LastModified Time None Recorded Advance Directives Directive None Recorded Payers Insurance Date Sequence Insurance Name Policy Number Policy Zhu Covered Member ID Zhu Member ID Guarantor Name 05/06/2025 1 [facility] [id number] 2 Solomon Dougherty [id number] Solomon Dougherty Notes Date Note Type Note Provider Name and Address Organization Details Recorded Time 02/17/2025 text/html ROS as noted in the [facility] 59-year-old male presents today for evaluation. He [...] is ok. No dizziness. HARRIETT ALCALA MD [address] [place] [address], [phone], [facility] 02/17/2025 09:57:43 05/06/2025 text/html ROS as noted in the [facility] 59-year-old male with mild high-frequency sensorineural hearing [...] membrane 2 months ago. ELLEN LAU MD [address] [place] [address], [phone], [facility] 05/07/2025 09:03:27
--- OUTSIDE RECORDS SUMMARY | 2025-06-03 11:47 | XMS_ITS | Continuity of Care Document ---
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 Patient InstructionsNo instructions recorded. Reason for Referral None Reported. Problems Name Problem SNOMED Code Status Onset Date Resolution Date Notes Provider Name and Address Organization Details Recorded Time Sensorineural hearing loss of bilateral ears 933069585 Active 2024 Westley MCGREGOR 100 [facility],[address], [place], [address], [facility] 09:08:36 Abnormal auditory perception 95812681 Active 2024 CLARA MARTÍNEZ PA-C 100 [facility], [place], [address], [facility] 14:10:09 Problem Notes None recorded. Procedures Surgical History Date Name Laterality Status Provider Name and Address Organization Details Recorded Time 02/17/2025 Comp Audio with Tymps - 31145 & 50245 completed Westley MCGREGOR 100 [facility] [address], [place], [address], [facility] 02/17/2025 09:07:53 Imaging Results None recorded. [...] Updated DateTime 05/06/2025 177.8 cm 26.1 kg/m2 86827.81 g Saadia Moran [place] - [facility] 05/06/2025 13:42:16 Social History Question Answer Notes LastModified by Organizat ion Details LastModified Time Tobacco Smoking Status Never Smoker HARRIETT ALCALA MD [address] [place] [address], [phone], [place] - [facility] 02/17/2025 09:54:39 What Type Of Measuring Machine Tender Do You Use? None Information not available [...] ICD10 Code Diagnosis IMO Codes Diagnosis Note [id number] CLARA MARTÍNEZ PA-C [facility] [address] [address] 05/06/2025 13:15:41 05/06/2025 14:13:05 Abnormal auditory perception 10066474 H93.292 28868960 Sensorineu ral hearing loss of bilateral ears 886869426 H90.3 [id number] Health Concerns Section Related Observation LastModified by Organization Detai ls LastModified Time None Recorded Concern Status LastModified by Organization Details LastModified Time None Recorded Payers Encounter Date Sequence Insurance Name Policy Number Policy Zhu Covered Member ID Zhu Member ID Guarantor Name 05/06/2025 1 [facility] [id number] 2 Solomon Dougherty [id number] Solomon Dougherty Notes Date Note Type Note [...] membrane 2 months ago. ELLEN LAU MD [address] [place] [address], [place], [address], [facility] - [facility] 05/07/2025 09:03:27
[2025-06-03 13:42] LABS: MANUAL DIFF FLAG NO
[2025-06-03 14:00] LABS: Hematocrit 42.9 % (42.0-52.0); Hemoglobin 14.8 g/dl (14.0-18.0); Imm Gran Abs Auto 0.02 X10*3/uL (0.00-0.03); Imm Gran Pct Auto 0.2 % (0.0-0.4); Lymphocytes Absolute Auto 2.0 X10*3/uL (1.2-4.9); Mean Corpuscular HGB Conc 34.5 g/dl (31.0-36.0); Mean Corpuscular Hemoglobin 29.6 pg (27.0-33.0); Mean Corpuscular Volume 85.8 fL (80.0-98.0); NRBC Abs Auto 0.000 X10*3/uL (0.0-0.012); NRBC Pct Auto 0.0 /100WBC (0.0-0.2); Platelet Count 339 X10*3/uL (160-400); Red Blood Count 5.00 X10*6/uL (4.60-5.80); White Blood Count 8.6 X10*3/uL (4.8-10.8)
[2025-06-03 14:24] LABS: Alanine Aminotransferase 29 U/L (0-40); Anion Gap 10 (12-20); Aspartate Amino Transferase 27 U/L (5-37); Blood Urea Nitrogen 17 mg/dL (9-16); Calcium 8.9 mg/dL (8.4-10.2); Carbon Dioxide 23 mmol/L (22-29); Chloride 110 mmol/L (96-108); Cholesterol 177 mg/dL (<200); Estimated Glomerular Filt Rate > 60; HDL Cholesterol 60 mg/dL (>40); Potassium 4.1 mmol/L (3.3-5.1); Sodium 139 mmol/L (135-145); Triglycerides 38 mg/dL (<150)
[2025-06-03 14:47] LABS: Resp Syncy Virus RNA Qual PCR NEGATIVE (Negative); SARS COV2 PCR INHOUSE NEGATIVE (Negative)
[2025-06-09 16:48] LABS: Testosterone, Free 68.9 pg/mL (35.0-155.0)
== END 2025-06-03 09:28 | disposition home or self-care (01) ==
LOC: HO.HMGCX 09:27
PROVIDERS: PCP Internal Medicine; Visit Provider Internal Medicine
DX: Z00.01 Encounter for general adult medical examination with abnormal findings (principal); Z71.89 Other specified counseling; M47.816 Spondylosis without myelopathy or radiculopathy, lumbar region; R05.9 Cough, unspecified; R73.01 Impaired fasting glucose; N52.9 Male erectile dysfunction, unspecified; R39.9 Unspecified symptoms and signs involving the genitourinary system; M75.102 Unspecified rotator cuff tear or rupture of left shoulder, not specified as traumatic; M25.512 Pain in left shoulder; G89.29 Other chronic pain; F33.41 Major depressive disorder, recurrent, in partial remission; R09.89 Other specified symptoms and signs involving the circulatory and respiratory systems; Z85.46 Personal history of malignant neoplasm of prostate; Z03.818 Encounter for observation for suspected exposure to other biological agents ruled out
CPT/HCPCS: 36415; 71046; 80048; 80061; 82306; 83036; 84402; 84403; 84450; 84460; 85025; 87637; 96127

== ENCOUNTER → 2025-06-03 10:34 | Outpatient (BNV) | payer OTHER, SELFPAY | PROVIDERS: PCP Internal Medicine; Visit Provider Radiology Diagnostic Radiology | DX: R09.89 Other specified symptoms and signs involving the circulatory and respiratory systems (principal) | CPT/HCPCS: 71046 ==